=== PATIENT | male | born 1975 | race African-American/Black ===

== ENCOUNTER 2019-07-06 16:12 | Emergency (ER) | payer OTHER, SELFPAY ==
--- NOTE | 2019-07-06 16:23 | ED.GENADULT ---
HPI - General Adult General Chief complaint: Upper Respiratory Infection Stated complaint: COLD FLU Time Seen by Provider: 07/06/19 16:23 Source: patient Mode of arrival: ambulatory Limitations: no limitations History of Present Illness HPI narrative: 43-year-old male patient presents to the [facility] with complaints of cold symptoms for the past 7 days. Patient states that he did get a flu shot this year. Patient states he has had fevers, body aches, chills, cough, runny nose. Patient states that he has had some intermittent chest pain for the past 3 days to the left upper chest at times. Patient states he does have a history of asthma that he has been using his inhaler for and has been getting better. Patient states that his is recently tested positive for influenza. Related Data Allergies Allergy/AdvReac Type Severity Reaction Status Date / Time fluticasone Allergy Unknown Seizure Verified 07/06/19 16:32 oxcarbazepine Allergy Unknown UPSET Verified 01/16/19 16:23 STOMACHE primidone Allergy Unknown Seizure Verified 07/06/19 16:32 salmeterol Allergy Unknown Seizure Verified 07/06/19 16:32 FLUTICASONE PROPIONATE Allergy Unknown Seizure Uncoded 07/06/19 16:32 SALMETEROL XINAFOATE Allergy Unknown Seizure Uncoded 07/06/19 16:32 Review of Systems Review of Systems: Narrative: CONSTITUTIONAL: Positive subjective fever, body aches, chills, and sweats. EYES: Denies visual changes, redness, or discharge. ENT: Positive rhinorrhea, congestion, denies sore throat, or otalgia. CARDIOVASCULAR: Positive intermittent left upper chest pain, denies palpitations, or edema. RESPIRATORY: Positive cough with dyspnea at times. GASTROINTESTINAL: Denies abdominal pain, nausea, vomiting, or diarrhea. GENITOURINARY: Denies dysuria or hematuria. SKIN: Denies rash or itching. MUSCULOSKELETAL: Denies back pain, joint pain, or myalgia. NEUROLOGIC: Denies headache, numbness, or weakness. PSYCHIATRIC: Denies anxiety or depression. [facility] Social History Social History Smoking status: Never smoker Alcohol intake: never Comments At the time of my signature I agree with nursing past medical history, surgical, social, and family history. There is no relevant family history pertinent to the presenting complaint. Exam Narrative: Exam Narrative: GENERAL: Well-appearing, well-nourished, and in no acute distress. HEAD: Normocephalic, atraumatic. EYES: PERRLA and EOMI. ENT: Nares clear, no rhinorrhea or epistaxis. Mucous membranes moist. Bilateral TMs are clear no erythema or foreign bodies in the canal. Posterior pharynx no erythema, tonsillar margin, exudates or lesions present. NECK: Supple. No lymphadenopathy CHEST: Clear to auscultation. No respiratory distress. Patient able talk in clear complete sentences. No tripoding noted. HEART: Regular rate and rhythm. No murmur heard. Normal peripheral pulses. ABDOMEN: Soft, nontender, nondistended, normal active bowel sounds. EXTREMITIES: Normal range of motion. No edema. SKIN: Warm, dry, no rash. NEURO: No focal deficits. Alert and oriented x3. Course Vital Signs Vital signs: Vital Signs Temperature 36.6 C 07/06/19 16:32 Pulse Rate 107 H 07/06/19 16:32 Respiratory Rate 16 07/06/19 16:32 Blood Pressure 130/85 07/06/19 16:32 Pulse Oximetry 100 07/06/19 16:32 Temperature 36.6 C 07/06/19 16:32 Pulse Rate 107 H 07/06/19 16:32 Respiratory Rate 16 07/06/19 16:32 Blood Pressure 130/85 07/06/19 16:32 Pulse Oximetry 100 07/06/19 16:32 Vital signs reviewed. Medical Decision Making Differential Diagnosis Differential Diagnosis: Differential diagnosis: Allergic rhinitis, chronic sinusitis, tonsillitis, acute sinusitis, infectious mononucleosis, seasonal influenza, pertussis, diphtheria, meningococcal disease, viral syndrome, viral bronchitis, RSV. Cussed with patient this is most likely influenza that is causing hi
[2019-07-06 16:32] VITALS: BP 130/85; PULSE 107; RESP 16; TEMP 36.6; O2SAT 100
--- NOTE | 2019-07-06 16:47 | ECG_ITS ---
Measurements Intervals [place] Rate: 102 P: 58 VT: 147 QRS: -12 QRSD: 85 T: 44 QT: 321 QTc: 419 Interpretive Statements SINUS TACHYCARD[address] ST ELEVATION IN DIFFUSE LEADS- PROBABLY EARLY REPOLARIZATION BASELINE ARTIFACT- II, III, AVR, AVL, AVF, V1-V2 ABNORMAL ECG Electronically Signed On 07-07-2019 13:34:25 CDT by Thomas Chavez D.O.
== END 2019-07-06 17:07 | disposition home or self-care (01) ==
PROVIDERS: Emergency Provider Nurse Practitioner Family; PCP Family Medicine
DX: J06.9 Acute upper respiratory infection, unspecified (principal); R05 Cough; R00.0 Tachycardia, unspecified; R94.31 Abnormal electrocardiogram [ECG] [EKG]
CPT/HCPCS: 93005; 99213; G0463

== ENCOUNTER 2019-07-10 01:02 | Emergency (ER) | payer OTHER, SELFPAY ==
--- NOTE | ~2019-07-10 | XR_ITS ---
XR chest 2V DATE: 07/10/2019 02:07 INDICATION: Shortness of breath TECHNIQUE: PA and lateral views COMPARISON: 02/17/2015 portable AP chest FINDINGS: Normal heart size. No hilar or mediastinal enlargement. No pulmonary infiltrate or consolid ation, pleural effusion or pulmonary vascular congestion or pneumothorax. IMPRESSION: No active cardiopulmonary disease Reviewed, dictated and finalized at location A.
--- NOTE | 2019-07-10 01:15 | ED_ITS ---
I attest that this documentation has been prepared under the direction and in the presence of Ruby Quiros MD. Alexei Bell Scribe 07/10/19;01:20 HPI - URI/Sore Throat General Stated Complaint: WHEEZING Time Seen by Provider: 07/10/19 01:12 History of Present Illness HPI Narrative: A 43 y/o male presents to the ED with SOB and wheezing for the past 9 days. wheezing, SOB, chest tightness, fatigue 9 days occasional dry cough no fevers, rhinorrhea, sore throat, nasal congestion, chills, body aches, CURRY Speredra and albuterol inhaler 3+ times a day 5 days worth LAYLA - finished them DDD, migraine, asthma, Renolds, colonoscopy, sinus surgery, vasectomy diminished bs through[place]ut and occasional faint wheezes Related Data Allergies Allergy/AdvReac Type Severity Reaction Status Date / Time fluticasone Allergy Unknown Seizure Verified 07/06/19 16:32 oxcarbazepine Allergy Unknown UPSET Verified 01/16/19 16:23 STOMACHE primidone Allergy Unknown Seizure Verified 07/06/19 16:32 salmeterol Allergy Unknown Seizure Verified 07/06/19 16:32 FLUTICASONE PROPIONATE Allergy Unknown Seizure Uncoded 07/06/19 16:32 SALMETEROL XINAFOATE Allergy Unknown Seizure Uncoded 07/06/19 16:32 [facility] Social History Social History Smoking status: Never smoker Alcohol intake: never Discharge Plan Discharge Prescriptions: No Action prednisone 20 mg tablet 40 mg PO DAILY 5 Days Qty: 10 RF: 0
--- NOTE | 2019-07-10 01:20 | ED.SOB ---
HPI - SOB/Dyspnea General Chief Complaint: Shortness of Breath/Dyspnea Stated Complaint: WHEEZING Time Seen by Provider: 07/10/19 01:12 Source: patient and RN notes reviewed Mode of arrival: ambulatory Limitations: no limitations History of Present Illness HPI Narrative: A 43 y/o male, with a hx of asthma, presents to the ED with worsening SOB and wheezing for the past 9 days. He reports associated chest tightness, fatigue, sore throat, nasal congestion, chills, body aches, CURRY, and a occasional dry cough. He states that he was seen at the on 07/06/19 for these symptoms and was placed on Prednisone LAYLA for 5 days and told to continue using his albuterol inhaler. He notes that he has followed these instructions but denies them alleviating his symptoms. He also denies any fevers or rhinorrhea. MD elicited complaint: shortness of breath Pertinent past history: asthma Onset (ago): day(s) (9) Timing: progressively worsening Relieving factors: nothing Known history of: asthma Associated symptoms: chest pain (tightness), cough (occasional dry) and other (fatigue, sore throat, nasal congestion, chills, body aches, and CURRY) Treatment prior to arrival: other (Prednisone and albuterol inhaler) Related Data Allergies Allergy/AdvReac Type Severity Reaction Status Date / Time fluticasone Allergy Unknown Seizure Verified 07/06/19 16:32 oxcarbazepine Allergy Unknown UPSET Verified 01/16/19 16:23 STOMACHE primidone Allergy Unknown Seizure Verified 07/06/19 16:32 salmeterol Allergy Unknown Seizure Verified 07/06/19 16:32 FLUTICASONE PROPIONATE Allergy Unknown Seizure Uncoded 07/06/19 16:32 SALMETEROL XINAFOATE Allergy Unknown Seizure Uncoded 07/06/19 16:32 Review of Systems Review of Systems: All systems reviewed & are unremarkable except as noted in HPI and below Constitutional: Constitutional: Reports body ache(s), Reports chills, Reports fatigue and Denies fever(s) ENT: Reports nasal congestion, Denies nasal discharge and Reports sore throat Cardiovascular: Cardiovascular: Reports chest pain (tightness) Respiratory: Respiratory: Reports cough (occasional dry), Reports dyspnea and Reports wheezing Neurologic: Reports headache(s) PMFSH Past Medical History Medical History Asthma DDD (degenerative disc disease) Hx of migraines Surgical History Surgical History History of colonoscopy History of sinus surgery History of vasectomy Social History Social History Smoking status: Never smoker Alcohol intake: never Exam Const: General: cooperative, no acute distress and alert Nutritional Appearance: well nourished Orientation/consciousness: patient oriented x3 Limitations: no limitations HENMT: Mouth: Yes lip normal and Yes moist mucous membranes Resp: Effort & Inspection: normal respiratory effort Auscultation: wheezes (occasional faint) and diminished lung sounds (throughout) Cardio: Rate: regular rate Rhythm: regular rhythm GI: GI Palp: Yes Soft to palpation and No Tenderness to palpation present (GI) Auscultation: normal bowel sounds Skin: General skin exam: normal color Neuro: General: patient oriented x3 Cognition (Neuro): normal cognition Speech: normal speech Extrem: General: normal to inspection, full ROM and no clubbing, cyanosis or edema Psych: Mental Status: mental status grossly normal Affect: normal affect Attitude: cooperative Course Course Emergency Course: Patient feeling better after nebulizer treatment. No acute findings noted on chest x-ray. Patient well in appearance with minimal wheezing and no notable cough. Clinical picture consistent with resolving viral syndrome and asthma exacerbation. Advised primary care follow-up Vital Signs Vital signs: Vital Signs Temperature 98.0 F 07/10/19 01:30 Pulse Rate 80 07/10/19 01:30 Respiratory Rate 18 03
[2019-07-10 01:30] VITALS: BP 133/92; PULSE 80; RESP 18; TEMP 36.7; O2SAT 97
[2019-07-10 01:42] VITALS: PULSE 79; RESP 11
[2019-07-10] MEDS: IPRATROPIUM BR 0.02% INH SOLN 0.5 MG/2.5 ML VIAL INHALATION (01:45)
[2019-07-10] MEDS: ALBUTEROL SULFATE NEB 2.5 MG/0.5 ML INH 5 MG INHALATION (01:45)
[2019-07-10 01:49] VITALS: PULSE 80; RESP 16
[2019-07-10 03:25] VITALS: BP 126/70; PULSE 84; RESP 14; O2SAT 99
== END 2019-07-10 03:25 | disposition home or self-care (01) ==
PROVIDERS: Emergency Provider Emergency Medicine; PCP Family Medicine
DX: J45.901 Unspecified asthma with (acute) exacerbation (principal); J06.9 Acute upper respiratory infection, unspecified
CPT/HCPCS: 71046; 87804; 94640; 99283

== ENCOUNTER 2019-07-14 01:50 | Emergency (ER) | payer OTHER, SELFPAY ==
[2019-07-14 01:54] VITALS: BP 138/79; PULSE 100; RESP 16; TEMP 35.9; O2SAT 98
[2019-07-14 02:25] VITALS: O2SAT 97
--- NOTE | 2019-07-14 02:34 | ED.ASTHMA ---
HPI - Asthma General Chief Complaint: Asthma Stated Complaint: asthma Time Seen by Provider: 07/14/19 02:34 Source: patient Mode of arrival: ambulatory Limitations: no limitations History of Present Illness HPI Narrative: A 43 y/o male, with a PMHx of asthma, presents to the ED with c/o an asthma attack. Pt states that it feels like his chest and throat are closing up. Pt has Albuterol and Spiriva that he has used with no relief. Pt was seen in the ED a couple days ago for the same issues and was given a breathing treatment. He reports chest tightness, a sore throat, cough, chills, and body aches, but denies sweats, ABD pain, N/V/D, smoking, alcohol use, and drug use. Asthma History: history of prior ED visit Treatments Prior to Arrival: other (Albuterol, Spiriva) Related Data Home Medications Medication Instructions Recorded Confirmed albuterol sulfate INHALATION 07/14/19 Allergies Allergy/AdvReac Type Severity Reaction Status Date / Time fluticasone Allergy Unknown Seizure Verified 07/14/19 02:07 oxcarbazepine Allergy Unknown UPSET Verified 07/14/19 02:07 STOMACHE primidone Allergy Unknown Seizure Verified 07/14/19 02:07 salmeterol Allergy Unknown Seizure Verified 07/14/19 02:07 FLUTICASONE PROPIONATE Allergy Unknown Seizure Uncoded 07/14/19 02:07 SALMETEROL XINAFOATE Allergy Unknown Seizure Uncoded 07/14/19 02:07 Review of Systems Review of Systems: All systems reviewed & are unremarkable except as noted in HPI and below Constitutional: Constitutional: Reports chills Comments: Reports: body aches; Denies: sweats ENT: Reports sore throat Cardiovascular: Comments: Reports: chest tightness Respiratory: Respiratory: Reports cough Comments: Reports: asthma attack Gastrointestinal: Gastrointestinal: Denies abdominal pain, Denies diarrhea, Denies nausea and Denies vomiting [facility] Past Medical History Medical History Asthma DDD (degenerative disc disease) Hx of migraines Spinal stenosis Surgical History Surgical History History of colonoscopy History of sinus surgery History of vasectomy Social History Social History (Updated 07/14/19 @ 02:45 by Oralia Hensley Smoking status: Never smoker Alcohol intake: never Substance use: never Comments PCP: Dr. Sarmiento Exam Narrative: Exam Narrative: GENERAL: Well-appearing, well-nourished, and in no acute distress. HEAD: Normocephalic, atraumatic. ENT: Mucous membranes moist. CHEST: Clear to auscultation. No respiratory distress. HEART: Regular rate and rhythm. Normal peripheral pulses. EXTREMITIES: Normal range of motion. No edema. NEURO: Alert and oriented x3. PSYCH: Normal mood and affect. Course Course Emergency Course: Feels better with neb. D/c. Vital Signs Vital signs: Vital Signs Temperature 96.6 F L 07/14/19 01:54 Pulse Rate 100 07/14/19 01:54 Respiratory Rate 16 07/14/19 01:54 Blood Pressure 138/79 07/14/19 01:54 Pulse Oximetry 98 07/14/19 01:54 Temperature 96.6 F L 07/14/19 01:54 Pulse Rate 92 07/14/19 03:08 Respiratory Rate 18 07/14/19 03:08 Blood Pressure 138/79 07/14/19 01:54 Pulse Oximetry 97 07/14/19 02:25 Discharge Plan Discharge Clinical Impression: Asthma with acute exacerbation Qualifiers: Asthma severity: mild Asthma persistence: unspecified Qualified Code(s): J45.901 - Unspecified asthma with (acute) exacerbation Patient Disposition: Home, Self-Care Condition: Stable Instructions: Asthma (ED) Additional Instructions: Return to the ER if you have fever over 101F, you cannot keep down food/water, or you have other concerns. Prescriptions: New prednisone 20 mg tablet 40 mg PO DAILY Qty: 10 RF: 0 No Action prednisone 20 mg tablet 40 mg PO DAILY 5 Days Qty: 10 RF: 0 albuterol sulfate 90 mcg/actuation HFA aerosol inhaler INHALATION RF: 0
[2019-07-14] MEDS: ALBUTEROL SULFATE NEB 2.5 MG/0.5 ML INH 5 MG INHALATION (02:53)
[2019-07-14] MEDS: IPRATROPIUM BR 0.02% INH SOLN 0.5 MG/2.5 ML VIAL INHALATION (02:53)
[2019-07-14 02:58] VITALS: PULSE 90; RESP 18
[2019-07-14 03:08] VITALS: PULSE 92; RESP 18
[2019-07-14] MEDS: predniSONE 20 MG TABLET 60 MG PO (03:08)
[2019-07-14 03:30] VITALS: BP 120/91; PULSE 84; RESP 12; TEMP 36.7; O2SAT 97
== END 2019-07-14 03:30 | disposition home or self-care (01) ==
PROVIDERS: Emergency Provider Emergency Medicine; PCP Family Medicine
DX: J45.901 Unspecified asthma with (acute) exacerbation (principal)
CPT/HCPCS: 99283; J7512

== ENCOUNTER 2019-12-13 18:09 | Emergency (ER) | payer OTHER, SELFPAY ==
--- NOTE | ~2019-12-13 | XR_ITS ---
EXAMINATION: XR chest 1V portable DATE: 12/13/2019 19:19 INDICATION: Shortness of breath and chest tightness TECHNIQUE: frontal view of the chest was obtained. COMPARISON: Chest radiograph dated 07/10/2019 FINDINGS: The lungs remain clear with no focal airspace opacities, pulmonary edema, pleural effusion or pneumot horax. The cardiomediastinal silhouette is normal. Visualized bones and soft tissues are unremarkable . IMPRESSION: 1. No acute cardiopulmonary disease. Reviewed, dictated and finalized at location A.
[2019-12-13 18:14] VITALS: BP 132/82; PULSE 114; RESP 20; TEMP 36.6; O2SAT 99
--- NOTE | 2019-12-13 19:07 | ECG_ITS ---
Measurements Intervals [place] Rate: 95 P: 59 DC: 147 QRS: -12 QRSD: 104 T: 38 QT: 333 QTc: 420 Interpretive Statements SINUS RHYTHM MINIMAL Q WAVES- HIGH LATERAL LEADS ST ELEVATION IN DIFFUSE LEADS- PROBABLY EARLY REPOLARIZATION BORDERLINE ECG Electronically Signed On 12-14-2019 7:00:14 CDT by Thomas Chavez D.O.
--- NOTE | 2019-12-13 19:08 | ED.SOB ---
HPI - SOB/Dyspnea General Chief Complaint: Shortness of Breath/Dyspnea Stated Complaint: asthma Time Seen by Provider: 12/13/19 19:01 Source: patient Mode of arrival: ambulatory Limitations: no limitations History of Present Illness HPI Narrative: This patient is a 44 year old male with history of asthma who presents for evaluation of asthma. He states he feels like he needs to take shallow breaths. He reports he feels like his breathing is constricted. He reports wheezing. He described intermittent chest tightness. He denies fever or chills. He denies sore throat, runny nose of nasal congestion. Pertinent past history: asthma Related Data Home Medications Medication Instructions Recorded Confirmed albuterol sulfate INHALATION 07/14/19 aspirin 81 mg PO DAILY 12/13/19 carbamazepine [Tegretol XR] 200 mg PO BID 12/13/19 cyclobenzaprine 5 mg PO TID 12/13/19 ipratropium-albuterol 3 ml INHALATION 12/13/19 meloxicam 15 mg PO DAILY 12/13/19 nortriptyline 20 mg PO HS 12/13/19 tiotropium bromide [Spiriva with 1 cap INHALATION DAILY 12/13/19 HandiHaler] Allergies Allergy/AdvReac Type Severity Reaction Status Date / Time oxcarbazepine Allergy Unknown UPSET Verified 12/13/19 19:08 STOMACHE primidone Allergy Unknown Seizure Verified 12/13/19 19:08 salmeterol Allergy Unknown Seizure Verified 12/13/19 19:08 FLUTICASONE PROPIONATE Allergy Unknown Seizure Uncoded 12/13/19 19:08 SALMETEROL XINAFOATE Allergy Unknown Seizure Uncoded 12/13/19 19:08 Review of Systems Review of Systems: All systems reviewed & are unremarkable except as noted in HPI and below Constitutional: Constitutional: Denies chills and Denies fever(s) ENT: Reports nasal congestion and Reports sore throat Cardiovascular: Cardiovascular: Reports chest pain and Denies radiating jaw, neck or arm pain Respiratory: Respiratory: Denies chest congestion, Denies cough, Reports dyspnea and Reports wheezing Gastrointestinal: Gastrointestinal: Denies abdominal pain, Denies diarrhea, Denies nausea and Denies vomiting PMFSH Past Medical History Medical History Asthma DDD (degenerative disc disease) Hx of migraines Spinal stenosis Surgical History Surgical History History of colonoscopy History of sinus surgery History of vasectomy Social History Social History (Updated 07/14/19 @ 02:45 by Oralia Oliveira) Smoking status: Never smoker Alcohol intake: never Substance use: never Gender identity (if verbalized by the patient): Male Exam Const: General: no acute distress and alert Orientation/consciousness: patient oriented x3 HENMT: Ears: TM's normal bilaterally Eyes: EOM: EOMs intact bilaterally Neck: Neck: normal visual inspection and no lymphadenopathy Chest: Chest palpation & inspection: normal inspection of the chest Resp: Effort & Inspection: normal respiratory effort, not labored, no retractions and not tachypneic Auscultation: clear to auscultation bilaterally and no wheezes Other: able to speak in complete sentences Cardio: Rate: regular rate Rhythm: regular rhythm Heart sounds: no murmurs GI: GI Palp: Yes Soft to palpation, No Tenderness to palpation present (GI), No Guarding due to palpation present (GI) and No Rigid due to palpation Skin: General skin exam: normal color Rashes: no rashes Neuro: General: patient oriented x3 and moves all extremities Extrem: General: no pedal edema Course Reevaluation(s) Reevaluation #1: Patent is resting in bed in no acute distress. I Discussed evaluation has been unremarkable. He states this problem is due to his asthma so will given MDI training and place on prednisone. Date: 12/13/19 Time: 21:25 Vital Signs Vital signs: Vital Signs Temperature 97.8 F 12/13/19 18:14 Pulse Rate 114 H 12/13/19 18:14 Respiratory Rate 20 12/13/19 18:14
[2019-12-13 19:24] LABS: Alveolar/Arterial O2 Gradient 12.5 mmHg; Base Excess ABG 0.8 mEq/l (+/-2.0); Device ROOM AIR; Fractional Inspired Oxygen 21 %; HCO3 ABG 25.2 mEq/l (22.0-26.0); Oxygen Content ABG 21.6 %vol (16.0-22.0); PCO2 ABG 39.5 mmHg (35.0-45.0); PO2 ABG 89.9 mmHg (80.0-100.0); PO2 FiO2 Ratio Arterial Blood 4.28 %; Site Drawn LEFT BRACHIAL; pH ABG 7.422 (7.350-7.450)
[2019-12-13 19:39] LABS: Basophils Percent Auto 0.6 % (0.2-1.2); Eosinophils Absolute Auto 0.2 K/mm3 (0-0.3); Eosinophils Percent Auto 2.3 % (0-4.4); Hematocrit 44.5 % (42.0-52.0); Immature Granulocyte Absolute 0.01 K/mm3 (0.00-0.031); Immature Granulocyte Percent A 0.2 % (0-0.5); Lymphocytes Absolute Auto 2.18 K/mm3 (0.9-3.2); Lymphocytes Percent Auto 33.1 % (18.3-44.2); Mean Corpuscular HGB Conc 33.7 g/dl (32-36); Mean Corpuscular Hemoglobin 30.7 pg (26-34); Mean Corpuscular Volume 91.2 fl (80-100); Mean Platelet Volume 9.6 fl (7.4-10.4); Monocytes Absolute Auto 0.8 K/mm3 (0.1-0.6); Neutrophils Absolute Auto 3.4 K/mm3 (1.3-6.7); Neutrophils Percent Auto 51.8 % (45.5-73.1); Platelet Count Result 192 k/mm3 (150-375); Red Blood Count 4.88 M/mm3 (4.6-6.20); White Blood Count 6.6 K/mm3 (4.5-10.0)
[2019-12-13 19:52] LABS: Lactic Acid Reflex 1.3 mmol/L (0.7-2.1)
[2019-12-13 19:53] LABS: Alanine Aminotransferase 44 U/L (4-50); Albumin Level 4.6 g/dL (3.5-5.1); Alkaline Phosphatase 94 U/L (38-126); Anion Gap 9 mmol/L (8-16); Aspartate Amino Transferase 32 U/L (17-59); Bilirubin,Total 0.3 mg/dL (0.2-1.3); Blood Urea Nitrogen 15 mg/dL (9-20); Calcium 9.1 mg/dL (8.4-10.2); Carbon Dioxide 26 mmol/L (22-30); Chloride 102 mmol/L (98-107); Estimated CRCL calculation 93 ml/min; Estimated Glomerular Filt Rate > 60; Glucose 104 mg/dL (75-110); Potassium 3.9 mmol/L (3.4-5.0); Sodium 137 mmol/L (137-145)
[2019-12-13 20:01] LABS: Prothrombin Time 12.8 Seconds (11.1-14.7)
[2019-12-13 20:02] LABS: Partial Thromboplastin Time 30.8 SECONDS (22.3-36.8)
[2019-12-13 20:04] LABS: NT Pro B Type Natriuretic Pept 18 PG/ML (5-100); Troponin I < 0.012 ng/mL (0.000-0.034)
[2019-12-13 20:08] LABS: D Dimer 0.27 ug/mL (<0.48)
[2019-12-13 20:24] VITALS: BP 128/89; PULSE 97; RESP 16; TEMP 36.8; O2SAT 98
[2019-12-13 20:27] VITALS: O2SAT 99
--- NOTE | 2019-12-13 20:57 | PC.NURSE ---
[facility] [place] BY ELI WHALEY; ON CONTINUOUS PULSE OXIMETRY, SPO2 REMAINED MID-HIGH 90's.
[2019-12-13] MEDS: predniSONE 20 MG TABLET 60 MG PO (21:33)
[2019-12-13 21:45] VITALS: BP 129/89; PULSE 98; RESP 14; O2SAT 97
[2019-12-13] MEDS: ALBUTEROL SULFATE (*SP) AEROSOL 1 PUFF 4 PUFF INHALATION (21:46)
[2019-12-13 21:48] VITALS: PULSE 90; RESP 16
[2019-12-13 21:50] VITALS: O2SAT 98
== END 2019-12-13 21:50 | disposition home or self-care (01) ==
PROVIDERS: Emergency Provider General Practice; PCP Family Medicine
DX: J45.909 Unspecified asthma, uncomplicated (principal)
CPT/HCPCS: 36415; 36600; 71045; 80053; 82805; 83605; 83880; 84484; 85025; 85380; 85610; 85730; 93005; 99284; A9270; J7512

== ENCOUNTER 2020-01-06 19:25 | Emergency (ER) | payer OTHER, SELFPAY ==
[2020-01-06 19:36] VITALS: BP 143/83; PULSE 103; RESP 16; TEMP 36.8; O2SAT 99
--- NOTE | 2020-01-06 20:12 | ED.HA ---
HPI - Headache General Chief Complaint: Headache Stated Complaint: Migranes Time Seen by Provider: 01/06/20 20:12 Source: patient and RN notes reviewed History of Present Illness HPI Narrative: 44-year-old male who presents [facility] with complaints of migraine headache for the past 2 days. Patient states that he has bilateral temporal headache pain and pain across the crown region of head.Patient states that he is on nortriptyline as maintenance for his headaches and he has been taking as prescribed. Patient states that he has long history of migraine headaches and seizures with last one noted in 2014, takes Tegretol daily. Patient states that he has no nausea at this time; has some sensitivity to sound and lights, has taken Ibuprofen with no relief. MD elicited complaint: migraine Pertinent past history: migraines Onset (ago): day(s) (2) Onset description: gradually Location: temporal and other (crown of head) Severity: moderate Pain scale (0-10): 4 Quality & Timing: aching and throbbing Exacerbating factors: light and noise Relieving factors: nothing Associated symptoms: photophobia and sensitivity to sound Treatments prior to arrival: ibuprofen Related Data Home Medications Medication Instructions Recorded Confirmed albuterol sulfate 2 inh INHALATION DIRECTED 07/14/19 01/06/20 aspirin 81 mg PO DAILY 12/13/19 01/06/20 carbamazepine [Tegretol XR] 200 mg PO BID 12/13/19 01/06/20 cyclobenzaprine 5 mg PO TID 12/13/19 01/06/20 meloxicam 15 mg PO DAILY 12/13/19 01/06/20 nortriptyline 20 mg PO HS 12/13/19 01/06/20 tiotropium bromide [Spiriva with 1 cap INHALATION DAILY 12/13/19 01/06/20 HandiHaler] Allergies Allergy/AdvReac Type Severity Reaction Status Date / Time oxcarbazepine Allergy Unknown UPSET Verified 12/13/19 19:08 STOMACHE primidone Allergy Unknown Seizure Verified 12/13/19 19:08 salmeterol Allergy Unknown Seizure Verified 12/13/19 19:08 FLUTICASONE PROPIONATE Allergy Unknown Seizure Uncoded 12/13/19 19:08 SALMETEROL XINAFOATE Allergy Unknown Seizure Uncoded 12/13/19 19:08 Review of Systems Review of Systems: Narrative: CONSTITUTIONAL: Denies fever, chills, or sweats. EYES: Denies visual changes, redness, or discharge.some photophobia and sensitivity to sound ENT: Denies rhinorrhea, congestion, sore throat, or otalgia. CARDIOVASCULAR: Denies chest pain, palpitations, or edema. RESPIRATORY: Denies cough or dyspnea. GASTROINTESTINAL: Denies abdominal pain, nausea, vomiting, or diarrhea. GENITOURINARY: Denies dysuria or hematuria. SKIN: Denies rash or itching. MUSCULOSKELETAL: Denies back pain, joint pain, or myalgia. NEUROLOGIC:positive temporal headache and in crown of head, no numbness, or weakness. PSYCHIATRIC: Denies anxiety or depression. All systems reviewed & are unremarkable except as noted in HPI and below PMFSH Past Medical History Medical History Asthma DDD (degenerative disc disease) Hx of migraines Spinal stenosis Surgical History Surgical History History of colonoscopy History of sinus surgery History of vasectomy Social History Social History Smoking status: Never smoker Alcohol intake: never Substance use: never Gender identity (if verbalized by the patient): Male Comments At time of signature, agree with nursing past medical, surgical, social history. There is no relevant family history pertinent to the presenting complaint Exam Narrative: Exam Narrative: GENERAL: Well-appearing, well-nourished, and in no acute distress. HEAD: Normocephalic, atraumatic. EYES: PERRLA and EOMI. ENT: Nares clear, no rhinorrhea or epistaxis. Mucous membranes moist. NECK: Supple. No lymphadenopathy CHEST: Clear to auscultation. No respiratory distress.SAO2 99% on room air HEART: Regular rate and rhythm. No murmur he
[2020-01-06] MEDS: KETOROLAC (*BKC) 60 MG/2 ML VIAL IM (20:17)
== END 2020-01-06 20:41 | disposition home or self-care (01) ==
PROVIDERS: Emergency Provider Registered Nurse; PCP Family Medicine
DX: G43.909 Migraine, unspecified, not intractable, without status migrainosus (principal); J45.909 Unspecified asthma, uncomplicated; M48.00 Spinal stenosis, site unspecified; Z79.82 Long term (current) use of aspirin
CPT/HCPCS: 96372; 99213; G0463; J1885

== ENCOUNTER 2020-02-17 17:35 | Emergency (ER) | payer OTHER, SELFPAY ==
[2020-02-17 17:43] VITALS: BP 128/73; PULSE 85; RESP 16; TEMP 36.7; O2SAT 100
--- NOTE | 2020-02-17 17:55 | ED.GENADULT ---
HPI - General Adult General Chief complaint: Headache Stated complaint: Migraine Time Seen by Provider: 02/17/20 17:56 Source: patient and RN notes reviewed Mode of arrival: ambulatory Limitations: no limitations History of Present Illness HPI narrative: 44-year-old -[place] male presents with complaints of headache without aura for the past 3 days. Nortriptyline and Aleve without relief. Melecio says this CURRY is not the WORST one of his life. No neck stiffness. No fever or chills. No URI symptoms. No head injury. History of migraines. Denies dizziness, vision change, confusion, or seizure activity. The patient reports they have not been diagnosed with COVID-19. The patient reports they are not waiting for the results of a COVID-19 lab test. The patient reports they do not have fever, chills, weakness, fatigue, myalgia, or facial swelling. The patient reports he have not been diagnosed with COVID-19. The patient reports he is not waiting for the results of a COVID-19 lab test. The patient reports he do not have fever, weakness, or fatigue. The patient reports he do not have a new or worsening cough or shortness of breath. Denies chest pain. The patient reports he do not have any rhinorrhea, congestion, loss of taste, sore throat, nausea, vomiting, abdominal pain, and diarrhea. Tolerating po intake well. Denies recent traveling. Denies concerns for COVID-19 or exposures been home with limited outdoor exposure except for essential household needs and return home. At this time, patient is not suspected of having COVID-19. Some parts of this dictation were generated by voice recognition software and may contain typographical and/or grammatical inaccuracies. Related Data Home Medications Medication Instructions Recorded Confirmed albuterol sulfate 2 inh INHALATION DIRECTED 07/14/19 01/06/20 aspirin 81 mg PO DAILY 12/13/19 01/06/20 carbamazepine [Tegretol XR] 200 mg PO BID 12/13/19 01/06/20 cyclobenzaprine 5 mg PO TID 12/13/19 01/06/20 meloxicam 15 mg PO DAILY 12/13/19 01/06/20 nortriptyline 20 mg PO HS 12/13/19 01/06/20 tiotropium bromide [Spiriva with 1 cap INHALATION DAILY 12/13/19 01/06/20 HandiHaler] ondansetron HCl 02/17/20 Allergies Allergy/AdvReac Type Severity Reaction Status Date / Time oxcarbazepine Allergy Unknown UPSET Verified 12/13/19 19:08 STOMACHE primidone Allergy Unknown Seizure Verified 12/13/19 19:08 salmeterol Allergy Unknown Seizure Verified 12/13/19 19:08 FLUTICASONE PROPIONATE Allergy Unknown Seizure Uncoded 12/13/19 19:08 SALMETEROL XINAFOATE Allergy Unknown Seizure Uncoded 12/13/19 19:08 Review of Systems Review of Systems: Narrative: CONSTITUTIONAL: Denies fever, chills, sweats. EYES: Denies visual changes, redness, discharge. ENT: Denies rhinorrhea, congestion, sore throat, otalgia. CARDIOVASCULAR: Denies chest pain, palpitations, edema. RESPIRATORY: Denies dyspnea, wheezing, cough. GASTROINTESTINAL: Denies abdominal pain, nausea, vomiting, or diarrhea. SKIN: Denies rash or itching. MUSCULOSKELETAL: Denies acute back pain, joint pain, or myalgia. NEUROLOGIC: Denies numbness or focal weakness. Complaints of headaches. PSYCHIATRIC: Denies anxiety or depression. All systems reviewed & are unremarkable except as noted in HPI and below. FOR[facility]LY [facility] Past Medical History Medical History (Updated 02/18/20 @ 00:00 by Background Daemon) Asthma DDD (degenerative disc disease) Hx of migraines Seizures Spinal stenosis Surgical History Surgical History (Updated 02/17/20 @ 18:07 by DEAN Mora) History of colonoscopy History of foot surgery Left History of sinus surgery History of vasectomy Family History Family History (Updated 02/17/20 @ 18:08 by DEAN Mora) Father Acute myocardial infarction Cerebrovascular accident Mother Acute myocardial infarction Cerebrovascular accident Social History Social History (Upd
[2020-02-17] MEDS: KETOROLAC (*BKC) 60 MG/2 ML VIAL IM (18:08)
== END 2020-02-17 18:28 | disposition home or self-care (01) ==
PROVIDERS: Emergency Provider Nurse Practitioner Family; PCP Family Medicine
DX: G43.909 Migraine, unspecified, not intractable, without status migrainosus (principal); J45.909 Unspecified asthma, uncomplicated; M48.00 Spinal stenosis, site unspecified; Z98.52 Vasectomy status; Z79.82 Long term (current) use of aspirin
CPT/HCPCS: 96372; 99213; G0463; J1885

== ENCOUNTER 2020-03-06 17:04 | Outpatient (CLI) | payer OTHER, SELFPAY ==
--- NOTE | ~2020-03-06 | XR_ITS ---
XR chest 2V DATE: 03/06/2020 17:27 INDICATION: History of asbestos exposure. Asthma. TECHNIQUE: PA and lateral views COMPARISON: 12/13/2019 portable AP chest FINDINGS: Normal heart size. No hilar or mediastinal enlargement. No pulmonary infiltrate or consolid ation, pleural effusion or pulmonary vascular congestion or pneumothorax. IMPRESSION: No active cardiopulmonary disease Reviewed, dictated and finalized at location A. LEVEL PRACTITIONER
== END 2020-03-06 17:05 | disposition home or self-care (01) ==
PROVIDERS: PCP Family Medicine; Visit Provider Family Medicine
DX: J45.909 Unspecified asthma, uncomplicated (principal); Z77.090 Contact with and (suspected) exposure to asbestos
CPT/HCPCS: 71046

== ENCOUNTER 2020-05-05 20:14 | Emergency (ER) | payer MEDICARE, MEDICAID, SELFPAY ==
--- NOTE | ~2020-05-05 | XR_ITS ---
EXAMINATION: XR chest 1V portable DATE: 05/05/2020 20:44 INDICATION: Chest pain. TECHNIQUE: A single frontal view of the chest was obtained. COMPARISON: Chest 2 views 03/06/2020 FINDINGS: The chest demonstrates clear lungs without pneumonia, pleural effusion, or pneumothorax. Th e heart size is normal. IMPRESSION: 1. No acute cardiopulmonary disease. Reviewed, dictated and finalized at location A. LLMENT SERVICES VICE PRESIDENT
[2020-05-05 20:20] VITALS: BP 161/96; PULSE 108; RESP 22; TEMP 36.8; O2SAT 97
--- NOTE | 2020-05-05 20:38 | ED.ASTHMA ---
HPI - Asthma General Chief Complaint: Asthma Stated Complaint: asthma, difficulty breathing Time Seen by Provider: 05/05/20 20:38 Source: patient and old records reviewed Mode of arrival: ambulatory Limitations: no limitations History of Present Illness HPI Narrative: Patient is a 44-year-old male who presents with what he feels is possible tightness of the throat noting that he has the sensation down the bilateral ears patient has had 2 - Covid test this week history of asthma was seen this week by primary care started on steroids which she has been taking patient denies fever chills nausea vomiting cough patient has been using his nebulizer at home has plenty of medications and on arrival does not appear uncomfortable or distressed denying any pain Related Data Home Medications Medication Instructions Recorded Confirmed albuterol sulfate 2 inh INHALATION DIRECTED 07/14/19 01/06/20 aspirin 81 mg PO DAILY 12/13/19 01/06/20 carbamazepine [Tegretol XR] 200 mg PO BID 12/13/19 01/06/20 cyclobenzaprine 5 mg PO TID 12/13/19 01/06/20 meloxicam 15 mg PO DAILY 12/13/19 01/06/20 nortriptyline 20 mg PO HS 12/13/19 01/06/20 tiotropium bromide [Spiriva with 1 cap INHALATION DAILY 12/13/19 01/06/20 HandiHaler] ondansetron HCl 02/17/20 Allergies Allergy/AdvReac Type Severity Reaction Status Date / Time oxcarbazepine Allergy Unknown UPSET Verified 05/05/20 20:23 STOMACHE primidone Allergy Unknown Seizure Verified 05/05/20 20:23 salmeterol Allergy Unknown Seizure Verified 05/05/20 20:23 FLUTICASONE PROPIONATE Allergy Unknown Seizure Uncoded 12/13/19 19:08 SALMETEROL XINAFOATE Allergy Unknown Seizure Uncoded 12/13/19 19:08 Review of Systems Review of Systems: All systems reviewed & are unremarkable except as noted in HPI and below PMFSH Past Medical History Medical History Asthma DDD (degenerative disc disease) Hx of migraines Seizures Spinal stenosis Surgical History Surgical History History of colonoscopy History of foot surgery Left History of sinus surgery History of vasectomy Family History Family History Father Acute myocardial infarction Cerebrovascular accident Mother Acute myocardial infarction Cerebrovascular accident Social History Social History Smoking status: Never smoker Tobacco type: cigarettes Second hand tobacco smoke exposure: Yes Alcohol intake: never Substance use: never Additional occupation/education comments: Disable Gender identity (if verbalized by the patient): Male Exam Narrative: Exam Narrative: GENERAL: Well-appearing, well-nourished, and in no acute distress. HEAD: Normocephalic, atraumatic. EYES: PERRLA and EOMI. ENT: Nares clear, no rhinorrhea or epistaxis. Mucous membranes moist. Oropharynx without tonsillar hypertrophy exudate or other lesions. Bilateral TMs with poor landmarks nonerythematous nonbulging NECK: Supple. No adenopathy or masses. CHEST: Clear to auscultation. No respiratory distress. No wheezes rales or rhonchi HEART: Regular rate and rhythm. No murmur heard. EXTREMITIES: Normal range of motion. No edema. SKIN: Warm, dry, no rash. NEURO: No focal deficits. Alert and oriented x3. Cranial nerves II through XII grossly intact PSYCH: Normal mood and affect. Course Course Emergency Course: Patient in the room with clear lung signs no distress has medications at home for his symptoms has had 2 - Covid test negative chest x-ray for pneumonia no hypoxemia will be discharged home for further evaluation treated symptomatically Vital Signs Vital signs: Vital Signs Temperature 98.3 F 05/05/20 20:20 Pulse Rate 108 H 05/05/20 20:20 Respiratory Rate 22 H 05/05/20 20:20 Blood Pressure
[2020-05-05 22:39] VITALS: BP 137/100; PULSE 94; RESP 18; O2SAT 96
== END 2020-05-05 22:40 | disposition home or self-care (01) ==
LOC: ANHED 21:36
PROVIDERS: Emergency Provider Emergency Medicine; PCP Family Medicine
DX: J45.901 Unspecified asthma with (acute) exacerbation (principal); Z79.82 Long term (current) use of aspirin; Z77.22 Contact with and (suspected) exposure to environmental tobacco smoke (acute) (chronic)
CPT/HCPCS: 71045; 99283

== ENCOUNTER 2020-07-04 07:57 | Outpatient (CLI) | payer MEDICARE, MEDICAID, SELFPAY ==
--- NOTE | 2020-07-04 12:34 | P.PCNPFT_ITS ---
PFT Interpretation This is a pulmonary function test with pre and post-bronchodilator spirometry, plethysmography and diffusing capacity. The test was performed and results interpreted in accordance with the 2019 and 2005 ATS/ERS Task Force guidelines respectively using the Global Lung Function Initiative-2012 reference equations. Patient demonstrated good effort and c ooperation. Reproducibility criteria were not met despite multiple attempts. The quality of the pre bronchodilator spirometry maneuver was Grade E and post bronchodilator spirometry maneuver was Grade E. Findings: Spirometry: The patient was unable to reproduce the flow volume loops. The pre bronchodilator FVC was 3.86 L, 89% predicted. The pre bronchodilator FEV1 was 2.84 L, 82% predicted. The FEV1: FVC ratio was 74%. Post bronchodilator FVC is 3.75 L, representing a 3% decrease. The post bronchodilator FEV1 was 3.23 L, representing a 14% increase. Plethysmography: The total lung capacity is 8.12 L, 132% predicted. The functional residual capacity is 4.11 L, 125% predicted. The residual volume is 4.08 L, 224% predicted. Diffusion capacity: The absolute diffusion capacity 20.3, 64% predicted. Diffusion capacity corrected for alveolar volume is 4.03, 86% predicted. Impression: The spirometry was not reproducible making interpretation challenging. Using the best data the spirometry is normal without evidence of an obstruction and there is a significant improvement after inhaling a single dose of albuterol. The total lung capacity, functional residual capacity and residual volume are all increased. This is an abnormal but nonspecific lung volume pattern. The absolute diffusing capacity is mildly decreased and normalizes when corrected for alveolar volume. Clinical correlation is recommended. There are no prior studies for comparison
== END 2020-07-04 07:58 | disposition home or self-care (01) ==
PROVIDERS: PCP Family Medicine; Visit Provider Family Medicine
DX: Z77.090 Contact with and (suspected) exposure to asbestos (principal)
CPT/HCPCS: 94060; 94726; 94729

== ENCOUNTER 2020-08-14 15:57 | Outpatient (CLI) | payer MEDICARE, MEDICAID, SELFPAY ==
--- NOTE | ~2020-08-14 | MR_ITS ---
EXAMINATION: MR lumbar spine wo con DATE: 08/14/2020 17:05 INDICATION: Lumbago. TECHNIQUE: Magnetic resonance imaging (MRI) of the lumbar spine was performed without intravenous con trast. Sequences included sagittal T2-weighted FSE, sagittal T2-weighted FS FSE, sagittal T1-weighted FSE, and axial T2-weighted FSE. COMPARISON: Lumbar spine MRI 07/25/2018 FINDINGS: Bone alignment is normal. Vertebral body heights are normal. There is mildly decreased disc height at L3-L4 and L4-L5 and moderately decreased disc height at L5-S1. The distal spinal cord sign al intensity is normal. The conus medullaris is at L1. The following disc levels are specifically dis cussed: L1-L2: The disc does not extend beyond the endplate margin. There is mild bilateral facet joint osteo arthritis. There is no neural foraminal stenosis. There is no central canal stenosis. L2-L3: The disc does not extend beyond the endplate margin. There is mild bilateral facet joint osteo arthritis. There is no neural foraminal stenosis. There is no central canal stenosis. L3-L4: The disc is bulging and has an annular fissure. There is moderate right and mild left facet faisal int osteoarthritis. There is mild bilateral neural foraminal stenosis. There is mild central canal st enosis. L4-L5: The disc is bulging and has an annular fissure. There is moderate bilateral facet joint osteoa rthritis. There is moderate bilateral neural foraminal stenosis. There is mild central canal stenosis . L5-S1: The disc is bulging and has an annular fissure. There is severe bilateral facet joint osteoart hritis. There is mild right and moderate left neural foraminal stenosis. There is mild central canal stenosis. IMPRESSION: 1. Moderate lumbar spondylosis, stable from 07/25/2018. Reviewed, dictated and finalized at location B.
--- NOTE | ~2020-08-14 | MR_ITS ---
EXAMINATION: MR cervical spine wo con DATE: 08/14/2020 16:45 INDICATION: Cervicalgia TECHNIQUE: Magnetic resonance imaging (MRI) of the cervical spine was performed without intravenous c ontrast. Sequences included sagittal T2-weighted FSE, sagittal T2-weighted FS FSE, sagittal T1-weight ed FSE, axial MERGE and axial T2-weighted FSE. COMPARISON: CT dated 01/16/2019 FINDINGS: Bone alignment is normal. Vertebral body heights are normal. Bone marrow signal intensity is normal . Intervertebral disc heights are normal. There are disc bulges at C3-C4 through C6-C7 resulting in m inimal to mild central canal stenosis greatest at C4-C5. Cord signal intensity is normal. Multilevel minimal to mild uncovertebral and facet osteoarthritis which does not result in significant neural fo raminal stenosis. Cervical soft tissues are unremarkable. IMPRESSION: 1. Minimal to mild cervical spondylosis. Reviewed, dictated and finalized at location A.
== END 2020-08-14 15:58 | disposition home or self-care (01) ==
PROVIDERS: PCP Family Medicine
DX: M47.896 Other spondylosis, lumbar region (principal); M47.892 Other spondylosis, cervical region
CPT/HCPCS: 72141; 72148

== ENCOUNTER 2021-02-04 08:42 | Outpatient (CLI) | payer MEDICARE, MEDICAID, SELFPAY ==
--- NOTE | ~2021-02-04 | MR_ITS ---
EXAMINATION: MR lumbar spine wo con DATE: 02/04/2021 09:27 INDICATION: Lumbar spinal stenosis. TECHNIQUE: Magnetic resonance imaging (MRI) of the lumbar spine was performed without intravenous con trast. Sequences included sagittal T2-weighted FSE, sagittal T2-weighted FS FSE, sagittal T1-weighted FSE, and axial T2-weighted FSE. COMPARISON: Lumbar spine MRI 08/14/2020 FINDINGS: Bone alignment is normal. Vertebral body heights are normal. There is mildly decreased disc height at L3-L4, L4-L5, and L5-S1. The distal spinal cord signal intensity is normal. The conus medu llaris is at L1. The following disc levels are specifically discussed: L1-L2: The disc does not extend beyond the endplate margin. There is mild bilateral facet joint osteo arthritis. There is no neural foraminal stenosis. There is no central canal stenosis. L2-L3: The disc does not extend beyond the endplate margin. There is mild bilateral facet joint osteo arthritis. There is no neural foraminal stenosis. There is no central canal stenosis. L3-L4: The disc is bulging and has an annular fissure. There is mild bilateral facet joint osteoarthr itis. There is moderate right and mild left neural foraminal stenosis. There is mild central canal st enosis. L4-L5: The disc is bulging and has an annular fissure. There is mild bilateral facet joint osteoarthr itis. There is moderate bilateral neural foraminal stenosis. There is mild central canal stenosis. L5-S1: The disc is bulging and has an annular fissure. There is mild bilateral facet joint osteoarthr itis. There is mild right and moderate left neural foraminal stenosis. There is mild central canal st enosis. IMPRESSION: 1. Moderate lumbar spondylosis, stable from 08/14/2020. Reviewed, dictated and finalized at location A.
== END 2021-02-04 08:43 | disposition home or self-care (01) ==
PROVIDERS: PCP Family Medicine; Visit Provider Physician Assistant
DX: M47.817 Spondylosis without myelopathy or radiculopathy, lumbosacral region (principal)
CPT/HCPCS: 72148

== ENCOUNTER 2021-02-22 14:02 | Outpatient (CLI) | payer MEDICARE, MEDICAID, SELFPAY ==
--- NOTE | ~2021-02-22 | US_ITS ---
US arterial ankle brachial ind INDICATION: Peripheral vascular disease TECHNIQUE: Segmental pressures and plethysmographic and Doppler waveforms of the brachial and lower e xtremity arteries were obtained. COMPARISON: None. FINDINGS: Right and left brachial artery pressures of 129 mm Hg and 127 mm Hg, respectively, are concordant (no rmal difference <= 30 mmHg). The right ankle-brachial index (ELVER) is 1.07 (normal >= 0.9-1.0). The right great toe-brachial index (TBI) is 0.43 (normal >= 0.60). The left ELVER is 1.09. The left TBI is 0.43. IMPRESSION: 1. Normal bilateral ankle-brachial indices. 2: Diminished bilateral toe brachial indices, consistent with mild peripheral arterial disease. Reviewed, dictated and finalized at location A. IMPRESSION: 1. Normal bilateral ankle-brachial indices. 2: Diminished bilateral toe brachial indices, consistent with mild peripheral a rterial disease.
== END 2021-02-22 14:03 | disposition home or self-care (01) ==
PROVIDERS: PCP Physician Assistant; Visit Provider Physician Assistant
DX: I73.9 Peripheral vascular disease, unspecified (principal)
CPT/HCPCS: 93922

== ENCOUNTER 2021-11-28 14:06 | Emergency (ER) | payer MEDICARE, MEDICAID, SELFPAY ==
--- NOTE | 2021-11-28 14:07 | ED.WOUNDLAC ---
HPI - Wound/Laceration General Stated Complaint: lac right 4th finger Time Seen by Provider: 11/28/21 14:07 Source: patient Mode of arrival: ambulatory Limitations: no limitations History of Present Illness HPI narrative: Mr. Saldivar is a 45-year-old male patient presenting to the clinic today with complaints of a laceration to his right fourth finger. He reports he is a diabetic and he is concerned about it becoming infected. 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 Tetanus UTD. Related Data Home Medications Medication Instructions Recorded Confirmed albuterol sulfate 90 mcg/actuation 2 inh inhalation DIRECTED 07/14/19 01/06/20 aerosol inhaler aspirin 81 mg chewable tablet 81 mg PO DAILY 12/13/19 01/06/20 carbamazepine 200 mg 200 mg PO BID 12/13/19 01/06/20 tablet,extended release,12 hr (Tegretol XR) cyclobenzaprine 5 mg tablet 5 mg PO TID 12/13/19 01/06/20 meloxicam 15 mg tablet 15 mg PO DAILY 12/13/19 01/06/20 nortriptyline 10 mg capsule 20 mg PO HS 12/13/19 01/06/20 tiotropium bromide 18 mcg capsule 1 cap inhalation DAILY 12/13/19 01/06/20 with inhalation device (Spiriva with HandiHaler) ondansetron HCl 8 mg tablet 02/17/20 Allergies Allergy/AdvReac Type Severity Reaction Status Date / Time oxcarbazepine Allergy Unknown UPSET Verified 11/28/21 14:13 STOMACHE primidone Allergy Unknown Seizure Verified 11/28/21 14:13 salmeterol Allergy Unknown Seizure Verified 11/28/21 14:13 FLUTICASONE PROPIONATE Allergy Unknown Seizure Uncoded 12/13/19 19:08 SALMETEROL XINAFOATE Allergy Unknown Seizure Uncoded 12/13/19 19:08 Review of Systems Review of Systems: Pertinent positives per HPI. Patient denies any fever, chills, rash, headache, visual changes, dizziness, cough, runny nose, sore throat, shortness of breath, chest pain, palpitations, nausea, vomiting, diarrhea, constipation, abdominal pain, or any urinary issues. [facility] Past Medical History Medical History Asthma DDD (degenerative disc disease) Hx of migraines Seizures Spinal stenosis Surgical History Surgical History History of colonoscopy History of foot surgery Left History of sinus surgery History of vasectomy Family History Family History Father Acute myocardial infarction Cerebrovascular accident Mother Acute myocardial infarction Cerebrovascular accident Social History Social History Smoking status: Never smoker Tobacco type: cigarettes Second hand tobacco smoke exposure: Yes Alcohol intake: never Substance use: never Additional occupation/education comments: Disable Gender identity (if verbalized by the patient): Male Comments At the time of my signature, I reviewed and agree with the nursing past medical, surgical, social, and family history. There is no relevant family history pertinent to the patient complaint. Exam Narrative: General: Well-developed, well nourished, in no apparent distress Head: Normocephalic, atraumatic. Cardio: Regular rate and rhythm, s1 and s2 normal, no murmur appreciated. Resp: Clear to auscultation bilaterally, no rhonchi, rales, wheezing or rubs. Integumentary: [place], warm, and dry, intact without lesion, superficial (paper cut) laceration to the fourth right distal volar finger. No redness or bleeding noted Course Course Emergency Course: Portions of this record may have been created with voice recognition software. Level of Care: Express Care Visit Vital Signs Vital signs: Vital signs reviewed MDM - Wound/Laceration MDM Narrative Medical decision making narrative: At the time of visit patient is resting comf
[2021-11-28 14:15] VITALS: BP 143/78; PULSE 93; RESP 18; TEMP 36.7; O2SAT 99
== END 2021-11-28 14:28 | disposition home or self-care (01) ==
PROVIDERS: Emergency Provider Nurse Practitioner Family
DX: S61.214A Laceration without foreign body of right ring finger without damage to nail, initial encounter (principal); X58.XXXA Exposure to other specified factors, initial encounter; J45.909 Unspecified asthma, uncomplicated; G40.909 Epilepsy, unspecified, not intractable, without status epilepticus; M48.00 Spinal stenosis, site unspecified; Z98.52 Vasectomy status; Z79.82 Long term (current) use of aspirin
CPT/HCPCS: 99212; G0463

== ENCOUNTER 2022-07-08 20:50 | Emergency (ER) | payer MEDICARE, MEDICAID, SELFPAY ==
[2022-07-08 21:13] VITALS: BP 113/83; PULSE 121; RESP 18; TEMP 37.4; O2SAT 98
[2022-07-08 22:05] LABS: Appearance Urine Clear (Clear); Bacteria Urine None Seen /hpf; Bilirubin Urine Negative (Negative); Color Urine Yellow (Yellow); Glucose Urine UA Negative (Negative); Ketones Urine Trace mg/dL (Negative); Leukocyte Esterase Ur 1+ LEU/UL (Negative); Nitrate Urine Negative (Negative); Non Pathogenic Casts 0-2; Protein Urine Trace mg/dL (Negative); Specific Grav Ur 1.023 (1.001-1.035); Squamous Epithelial Cell Urine None seen /hpf (Few); Urobilinogen Urine 0.2 mg/dL (<2.0); WBC Urine 51-100 /hpf; pH Urine 7.5 (5.0-9.0)
[2022-07-08 22:08] LABS: Add Urine Microscopic? YES
[2022-07-08 23:34] VITALS: BP 104/56; PULSE 116; RESP 18; O2SAT 98
--- NOTE | 2022-07-09 01:11 | PC.NURSE ---
Pt. states I am going to go somewhere else. pt. ambulated out of ed w/ steady gait
== END 2022-07-09 01:11 | disposition left against medical advice (07) ==
LOC: ANHED 07-09 01:21
PROVIDERS: Emergency Provider Emergency Medicine
DX: R10.9 Unspecified abdominal pain (principal)
CPT/HCPCS: 81001; 81003; 87086; 99199

== ENCOUNTER 2022-08-19 18:13 | Emergency (ER) | payer MEDICARE, MEDICAID, SELFPAY ==
--- NOTE | 2022-08-19 18:32 | ED.URI ---
HPI - URI/Sore Throat General Chief Complaint: Upper Respiratory Infection Stated Complaint: Sinus Time Seen by Provider: 08/19/22 18:32 Source: patient, RN notes reviewed and old records reviewed Mode of arrival: ambulatory Limitations: no limitations History of Present Illness HPI Narrative: 46-year-old male presents to the [facility] with a sore throat, feeling like there is a cold in his chest. has had a cough. Denies fevers. No treatment prior to arrival symptoms started yesterday Treatments prior to arrival: none Related Data Home Medications Medication Instructions Recorded Confirmed albuterol sulfate 90 mcg/actuation 2 inh inhalation DIRECTED 07/14/19 11/28/21 aerosol inhaler aspirin 81 mg chewable tablet 81 mg PO DAILY 12/13/19 11/28/21 carbamazepine 200 mg 200 mg PO BID 12/13/19 11/28/21 tablet,extended release,12 hr (Tegretol XR) cyclobenzaprine 5 mg tablet 5 mg PO TID 12/13/19 11/28/21 nortriptyline 10 mg capsule 20 mg PO HS 12/13/19 11/28/21 tiotropium bromide 18 mcg capsule 1 cap inhalation DAILY 12/13/19 11/28/21 with inhalation device (Spiriva with HandiHaler) metformin 1,000 mg tablet 1,000 mg PO DAILY 11/28/21 11/28/21 montelukast 10 mg tablet 10 mg PO DAILY 11/28/21 11/28/21 rosuvastatin 5 mg tablet 5 mg PO DAILY 11/28/21 11/28/21 Allergies Allergy/AdvReac Type Severity Reaction Status Date / Time oxcarbazepine Allergy Unknown UPSET Verified 08/19/22 18:36 STOMACHE primidone Allergy Unknown Seizure Verified 08/19/22 18:36 salmeterol Allergy Unknown Seizure Verified 08/19/22 18:36 FLUTICASONE PROPIONATE Allergy Unknown Seizure Uncoded 08/19/22 18:36 SALMETEROL XINAFOATE Allergy Unknown Seizure Uncoded 08/19/22 18:36 Review of Systems Review of Systems: All systems reviewed & are unremarkable except as noted in HPI and below Constitutional: Constitutional: Reports no additional constitutional complaints Eyes: Eyes: Reports no additional eye complaints ENT: Reports as per HPI and Reports sore throat Cardiovascular: Cardiovascular: Reports no additional cardiovascular complaints, Denies chest pain and Denies dyspnea Respiratory: Respiratory: Reports as per HPI, Reports chest congestion, Denies cough and Denies dyspnea Gastrointestinal: Gastrointestinal: Reports no additional gastrointestinal complaints, Denies abdominal pain, Denies nausea and Denies vomiting Musculoskeletal: Musculoskeletal: Reports no additional musculoskeletal complaints Integumentary/Breasts: Skin/Breast: Reports system reviewed and no additional complaints, except as docu Neurologic: Reports system reviewed and no additional complaints, except as documented Psychiatric: Psychiatric: Reports no additional psychiatric complaints Allergic/Immunologic: Allergic/Immunologic: Reports no additional allergic/immunologic complaints PMFSH Past Medical History Medical History Asthma DDD (degenerative disc disease) Hx of migraines Seizures Spinal stenosis Surgical History Surgical History History of colonoscopy History of foot surgery Left History of sinus surgery History of vasectomy Family History Family History Father Acute myocardial infarction Cerebrovascular accident Mother Acute myocardial infarction Cerebrovascular accident Social History Social History Smoking status: Never smoker Tobacco type: cigarettes Second hand tobacco smoke exposure: Yes Alcohol intake: never Substance use: never Living arrangements: with family Additional occupation/education comments: Disable Gender identity (if verbalized by the patient): Male Comments At the time of my signature, I reviewed and agree with the nursing past medical, surg
[2022-08-19 18:38] VITALS: BP 129/73; PULSE 96; RESP 16; TEMP 36.5; O2SAT 100
== END 2022-08-19 18:55 | disposition home or self-care (01) ==
PROVIDERS: Emergency Provider Nurse Practitioner
DX: J02.0 Streptococcal pharyngitis (principal); Z20.822 Contact with and (suspected) exposure to COVID-19; J45.909 Unspecified asthma, uncomplicated; G40.909 Epilepsy, unspecified, not intractable, without status epilepticus; M48.00 Spinal stenosis, site unspecified; Z98.52 Vasectomy status
CPT/HCPCS: 87426; 87880; 99213; C9803; G0463

== ENCOUNTER 2023-08-24 18:46 | Emergency (ER) | payer MEDICARE, MEDICAID, SELFPAY ==
--- NOTE | ~2023-08-24 | XR_ITS ---
EXAMINATION: XR chest 1V portable Exam Date/Time: 08/24/2023 19:19 CDT HISTORY: dyspnea Comparison: 05/05/2020. RESULT: Lines, tubes, and devices: None. Lungs and pleura: Subsegmental left basilar opacities. Cardiomediastinal silhouette: Stable. Other: No acute osseous or upper abdominal finding. IMPRESSION: Subsegmental left basilar atelectasis/consolidation. Reviewed, dictated and finalized at location K.
--- NOTE | ~2023-08-24 | CT_ITS ---
EXAMINATION: CT soft tissue neck w con DATE: 08/24/2023 22:37 INDICATION: Dyspnea TECHNIQUE: Computed tomography (CT) of the neck was performed with 75 mL Omnipaque-350 intravenous co ntrast. Automated exposure control and iterative reconstruction technique were employed. The dose-francis gth product was 518.92 mGy-cm. COMPARISON: None FINDINGS: The thyroid gland is unremarkable. The submandibular and parotid glands are symmetric. There is n o cervical lymphadenopathy. There are no masses identified. The superior mediastinum is unremarka ble. The airway is unremarkable. Parapharyngeal and pre-glottic fat planes are preserved. Stephanie l enhancing neck vessels. The orbits are unremarkable. Visualized sinuses and mastoid air cells ar e well aerated. Clear lung apices. Normal regional bones. IMPRESSION: Unremarkable CT soft tissue neck findings. Reviewed, dictated and finalized at location K.
[2023-08-24 18:48] VITALS: BP 113/83; PULSE 120; RESP 31; TEMP 36.5; O2SAT 100
--- NOTE | 2023-08-24 18:55 | ECG_ITS ---
SEE SCANNED COPY FOR CONFIRMED REPORT. MTDD
[2023-08-24 18:56] VITALS: O2SAT 100
--- NOTE | 2023-08-24 19:10 | PC.NURSE ---
Report from ROMIE Puga. Resp even and nonlabored. No difficulty breathing or swallowing at this time.
[2023-08-24] MEDS: diphenhydrAMINE HCl INJ 50 MG/ML VIAL IV PUSH (19:20)
[2023-08-24] MEDS: SODIUM CHLORIDE 0.9% IV 2,000 ML 999 ML IV CONT (19:20)
[2023-08-24] MEDS: dexAMETHasone SOD PHOS INJ 10 MG/ML 1 ML VIAL IV PUSH (19:21)
[2023-08-24] MEDS: FAMOTIDINE 20 MG/2 ML VIAL 40 MG IV PUSH (19:21)
[2023-08-24 19:30] VITALS: BP 112/70; PULSE 102; RESP 18; O2SAT 95
[2023-08-24 19:36] LABS: Basophils Absolute Auto 0.1 K/mm3 (0.0-0.1); Basophils Percent Auto 0.6 % (0.2-1.2); Eosinophils Absolute Auto 0.1 K/mm3 (0-0.3); Immature Granulocyte Absolute 0.02 K/mm3 (0.00-0.031); Immature Granulocyte Percent A 0.3 % (0-0.5); Lymphocytes Absolute Auto 2.19 K/mm3 (0.9-3.2); Lymphocytes Percent Auto 27.5 % (18.3-44.2); Mean Corpuscular HGB Conc 32.6 g/dl (32-36); Mean Corpuscular Volume 92.3 fl (80-100); Mean Platelet Volume 9.9 fl (7.4-10.4); Monocytes Absolute Auto 0.8 K/mm3 (0.1-0.6); Monocytes Percent Auto 9.4 % (2.6-8.5); Neutrophils Absolute Auto 4.9 K/mm3 (1.3-6.7); Neutrophils Percent Auto 61.2 % (45.5-73.1); Platelet Count Result 191 k/mm3 (150-375); Red Blood Count 4.66 M/mm3 (4.6-6.20); Red Cell Distribution Width 13.4 % (11.5-14.5)
[2023-08-24 19:45] LABS: Alanine Aminotransferase 33 U/L (6-50); Albumin Level 4.3 g/dL (3.5-5.1); Alkaline Phosphatase 101 U/L (38-126); Anion Gap 8 mmol/L (4-12); Aspartate Amino Transferase 27 U/L (17-59); Bilirubin,Total 0.4 mg/dL (0.2-1.3); Blood Urea Nitrogen 15 mg/dL (9-20); Calcium 9.7 mg/dL (8.4-10.2); Carbon Dioxide 24 mmol/L (22-30); Chloride 106 mmol/L (98-107); Estimated CRCL calculation 82 ml/min; Estimated Glomerular Filt Rate > 60; Glucose 148 mg/dL (65-110); Potassium 3.4 mmol/L (3.4-5.0); Sodium 138 mmol/L (137-145)
--- NOTE | 2023-08-24 19:46 | ED.GENADULT ---
HPI - General Adult General Chief complaint: Allergic Reaction Stated complaint: allergic Time Seen by Provider: 08/24/23 19:00 History of Present Illness HPI narrative: This is a 47-year-old male with history of epilepsy presenting for allergic reaction. Patient felt like he was going to have a seizure because he started to feel faint. He then took some of his sons intranasal diazepam. He then developed throat irritation swelling and felt like he could not breathe. His symptoms are improving. He has not developed hives nausea vomiting diarrhea. He has no history of anaphylactic reactions. He has never taken diazepam before. Patient did not end up having a seizure. His seizures are well controlled with Keppra been several months since he has had one. His neurologist is at [facility]. Related Data Home Medications Medication Instructions Recorded Confirmed albuterol sulfate 90 mcg/actuation 2 inh inhalation DIRECTED 07/14/19 11/28/21 aerosol inhaler aspirin 81 mg chewable tablet 81 mg PO DAILY 12/13/19 11/28/21 carbamazepine 200 mg 200 mg PO BID 12/13/19 11/28/21 tablet,extended release,12 hr (Tegretol XR) cyclobenzaprine 5 mg tablet 5 mg PO TID 12/13/19 11/28/21 nortriptyline 10 mg capsule 20 mg PO HS 12/13/19 11/28/21 tiotropium bromide 18 mcg capsule 1 cap inhalation DAILY 12/13/19 11/28/21 with inhalation device (Spiriva with HandiHaler) metformin 1,000 mg tablet 1,000 mg PO DAILY 11/28/21 11/28/21 montelukast 10 mg tablet 10 mg PO DAILY 11/28/21 11/28/21 rosuvastatin 5 mg tablet 5 mg PO DAILY 11/28/21 11/28/21 Allergies Allergy/AdvReac Type Severity Reaction Status Date / Time oxcarbazepine Allergy Unknown UPSET Verified 08/19/22 18:36 STOMACHE primidone Allergy Unknown Seizure Verified 08/19/22 18:36 salmeterol Allergy Unknown Seizure Verified 08/19/22 18:36 FLUTICASONE PROPIONATE Allergy Unknown Seizure Uncoded 08/19/22 18:36 SALMETEROL XINAFOATE Allergy Unknown Seizure Uncoded 08/19/22 18:36 [facility] Past Medical History Medical History Asthma DDD (degenerative disc disease) Hx of migraines Seizures Spinal stenosis Surgical History Surgical History History of colonoscopy History of foot surgery Left History of sinus surgery History of vasectomy Family History Family History Father Acute myocardial infarction Cerebrovascular accident Mother Acute myocardial infarction Cerebrovascular accident Social History Social History Smoking status: Never smoker Tobacco type: cigarettes Second hand tobacco smoke exposure: Yes Alcohol intake: never Substance use: never Living arrangements: with family Additional occupation/education comments: Disable Gender identity (if verbalized by the patient): Male Exam Narrative: APPEARANCE: No apparent distress. Head: No swelling of the tongue lips or uvula EYES: EOMI, NOSE: Atraumatic NECK: Trachea midline RESPIRATORY: No increased rate of breathing CTAB CARDIOVASCULAR: RRR, ABDOMINAL: Non-distended soft nontender MUSCULOSKELETAl: No obvious deformities NEURO: Alert. Cranial nerves 2-12 grossly intact. Sensation light touch, motor function cerebellar function intact for 4 extremities. Gait exam was normal. SKIN:: No urticaria or hives PSYCHIATRIC: Normal affect Course Vital Signs Vital signs: Vital Signs Temperature 97.7 F 08/24/23 18:48 Pulse Rate 120 H 08/24/23 18:48 Respiratory Rate 31 H 08/24/23 18:48 Blood Pressure 113/83 08/24/23 18:48 Pulse Oximetry 100 08/24/23 18:48 Oxygen Delivery Room Air 08/24/23 18:48 Temperature 97.7 F 08/24/23 18:48 Pulse Rate 102 H 08/24/23 19:30 Respiratory Rate 18 08/24/23 19:30 Blood Pressure
[2023-08-24 22:36] LABS: Troponin I < 0.012 ng/mL (0.000-0.034)
[2023-08-24 23:25] LABS: Troponin I < 0.012 ng/mL (0.000-0.034)
[2023-08-24 23:43] VITALS: BP 136/96; PULSE 94; O2SAT 97
== END 2023-08-24 23:56 | disposition home or self-care (01) ==
PROVIDERS: Emergency Provider Emergency Medicine
DX: T78.40XA Allergy, unspecified, initial encounter (principal); G40.909 Epilepsy, unspecified, not intractable, without status epilepticus; J45.909 Unspecified asthma, uncomplicated; E11.9 Type 2 diabetes mellitus without complications; Z79.82 Long term (current) use of aspirin; Z79.84 Long term (current) use of oral hypoglycemic drugs; X58.XXXA Exposure to other specified factors, initial encounter
CPT/HCPCS: 36415; 70491; 71045; 80053; 84484; 85025; 93005; 96361; 96374; 96375; 99284; J1100; J1200; J7030; Q9967

== ENCOUNTER 2023-08-29 08:31 | Outpatient (CLI) | payer MEDICARE, MEDICAID, SELFPAY ==
--- NOTE | ~2023-08-29 | MR_ITS ---
EXAMINATION: MR ankle LT wo con DATE: 08/29/2023 09:33 INDICATION: Talar head fracture TECHNIQUE: Magnetic resonance imaging (MRI) of the left ankle was performed without intravenous contr ast. Sequences included sagittal, coronal, and axial proton-density weighted fast spin echo without a nd with fat saturation. COMPARISON: None. FINDINGS: Medial ankle ligaments: Deep and superficial deltoid ligaments as well as the spring ligament are normal. Lateral ankle ligaments: The anterior and posterior inferior tibiofibular ligaments are normal. The anterior talofibular, calc aneofibular and posterior talofibular ligaments are normal. Tendons: Achilles tendon is normal. The peroneus longus tendon is normal. The peroneus brevis tendon appears t o divide with 1 diminutive slip extending to its typical insertion at the base of the fifth metatarsa l and with 2 additional slips one larger and one smaller extending to attach to the lateral aspect of the calcaneus the larger and more anterior along the anterior margin of the retro trochlear eminence and the second smaller along its posterior margin. The tibialis anterior and extensor hallucis longu s and extensor digitorum longus tendons are normal. The tibialis posterior, flexor digitorum longus a nd flexor hallucis longus tendons are normal. Plantar fascia: Latter aponeurosis is normal. Bones/other: There are postoperative changes with multiple foci of susceptibility artifact extending caudally over lying the posterior to the neurovascular bundle at the distal lower leg extending across the ankle to the plantar aspect of the foot consistent with likely prior tarsal tunnel release. Bone alignment is normal. There is mild nonuniform joint space narrowing at the inferior aspect of the talonavicular a rticulation. There is mild marrow edema surrounding a small shallow concavity without overlying carti reyes along the plantar margin of the articular surface of the head of the talus which could represent either a high-grade chondromalacia with remodeling of the cortex and underlying edema-like signal ch rio or sequela of a subacute osteochondral impaction fracture. Small low signal intensity bone islan d at the posterior calcaneus. Marrow signal is otherwise normal throughout. No other fractures or pat hologic marrow replacing process. Joint spaces appear otherwise normal. There is additional increased fluid signal in the visualized distal flexor hallucis longus muscle belly. Fluid: Physiologic amount fluid in the joint spaces. Mild edema at the K[place] fat pad. IMPRESSION: 1. 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 2. Nonspecific increased fluid signal in the distal flexor hallucis longus muscle belly which could b e due to muscle strain, denervation change or other nonspecific myositis which there is a wide differ ential. 3. Postoperative change of prior tarsal tunnel release. 4. Likely normal anatomic variant peroneus brevis tendon which divides into 3 segments, one with norm al insertion at the fifth metatarsal base and the other to inserting along the lateral calcaneus. Reviewed, dictated and finalized at location A. IMPRESSION: 1. 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 2. Nonspecific increased fluid signal in the distal flexor hallucis longus musc le belly which could be due to muscle strain, denervation change or other nonsp ecific myositis which there is a wide differential. 3. Postoperative jose c
== END 2023-08-29 08:32 | disposition home or self-care (01) ==
LOC: ANHIMG 08:39
PROVIDERS: PCP Family Medicine; Visit Provider Family Medicine
DX: R93.89 Abnormal findings on diagnostic imaging of other specified body structures (principal)
CPT/HCPCS: 73721

== ENCOUNTER 2023-12-11 18:48 | Emergency (ER) | payer MEDICARE, MEDICAID, SELFPAY ==
--- NOTE | ~2023-12-11 | XR_ITS ---
EXAMINATION: XR abdomen/kub 1V DATE: 12/11/2023 19:28 INDICATION: Lower abdominal pain. Constipation 1 week prior. TECHNIQUE: A supine view of the abdomen on 2 radiographs was obtained. COMPARISON: None. FINDINGS: Moderate amount of stool in the ascending, transverse and proximal descending colon. Small amount of gas without significant stool in the more distal descending and sigmoid colon. No dilated gas-filled loops of bowel to suggest obstruction. Bones are unremarkable. IMPRESSION: 1. Normal bowel gas pattern with moderate amount of stool in the proximal to mid colon. Reviewed, dictated and finalized at location A. IMPRESSION: 1. Normal bowel gas pattern with moderate amount of stool in the proximal to mi d colon.
[2023-12-11 19:04] VITALS: BP 138/74; PULSE 88; RESP 20; TEMP 36.4; O2SAT 100
[2023-12-11 19:14] LABS: EDUAAPPEAR Cloudy; EDUABILI Negative; EDUABLOOD Negative; EDUACOLOR1 Yellow; EDUAGLUCOSE Negative; EDUAKETONE Negative; EDUALEUKO Negative; EDUANITRATE Negative; EDUAPROTEIN Negative
--- NOTE | 2023-12-11 19:17 | ED.MALEGU ---
HPI - Male Genitourinary General Chief complaint: Urogenital-Male Stated complaint: bladder or kidney issue Time Seen by Provider: 12/11/23 19:17 Source: patient Mode of arrival: ambulatory Limitations: no limitations History of Present Illness HPI Narrative: 48-year-old male presents with complaint of lower abdominal pain, urinary frequency, dysuria. Afebrile. Denies back pain. Reports constipation last week, took milk of magnesia and is better. Denies nausea vomiting. no concern for STI. Denies swelling, pain to testicles. All systems reviewed and negative except as noted above. Related Data Home Medications Medication Instructions Recorded Confirmed albuterol sulfate 90 mcg/actuation 2 inh inhalation DIRECTED 07/14/19 12/11/23 aerosol inhaler aspirin 81 mg chewable tablet 81 mg PO DAILY 12/13/19 12/11/23 carbamazepine 200 mg 200 mg PO BID 12/13/19 12/11/23 tablet,extended release,12 hr (Tegretol XR) tiotropium bromide 18 mcg capsule 1 cap inhalation DAILY 12/13/19 12/11/23 with inhalation device (Spiriva with HandiHaler) metformin 1,000 mg tablet 1,000 mg PO DAILY 11/28/21 12/11/23 montelukast 10 mg tablet 10 mg PO DAILY 11/28/21 12/11/23 rosuvastatin 5 mg tablet 5 mg PO DAILY 11/28/21 12/11/23 ipratropium 0.5 mg-albuterol 3 mg 3 ml inhalation DIRECTED 12/11/23 12/11/23 (2.5 mg base)/3 mL nebulization soln levetiracetam 500 mg tablet 500 mg PO DIRECTED 12/11/23 12/11/23 rimegepant 75 mg disintegrating 75 mg PO DIRECTED 12/11/23 12/11/23 tablet (Nurtec ODT) Allergies Allergy/AdvReac Type Severity Reaction Status Date / Time oxcarbazepine Allergy Unknown UPSET Verified 12/11/23 18:57 STOMACHE primidone Allergy Unknown Seizure Verified 12/11/23 18:57 salmeterol Allergy Unknown Seizure Verified 12/11/23 18:57 FLUTICASONE PROPIONATE Allergy Unknown Seizure Uncoded 12/11/23 18:57 SALMETEROL XINAFOATE Allergy Unknown Seizure Uncoded 12/11/23 18:57 Review of Systems Review of Systems: CONSTITUTIONAL: Denies fever, chills, or sweats. EYES: Denies visual changes, redness, or discharge. ENT: Denies rhinorrhea, congestion, sore throat, or otalgia. CARDIOVASCULAR: Denies chest pain, palpitations, or edema. RESPIRATORY: Denies cough or dyspnea. GASTROINTESTINAL: Reports lower abdominal pain. Denies nausea, vomiting, or diarrhea. GENITOURINARY: reports dysuria, frequency. Denies hematuria. SKIN: Denies rash or itching. MUSCULOSKELETAL: Denies back pain, joint pain, or myalgia. NEUROLOGIC: Denies headache, numbness, or weakness. PSYCHIATRIC: Denies anxiety or depression. All other systems reviewed are negative, except as documented in HPI. [facility] Past Medical History Medical History Asthma DDD (degenerative disc disease) Hx of migraines Seizures Spinal stenosis Surgical History Surgical History History of colonoscopy History of foot surgery Left History of sinus surgery History of vasectomy Family History Family History Father Acute myocardial infarction Cerebrovascular accident Mother Acute myocardial infarction Cerebrovascular accident Social History Social History Smoking status: Never smoker Tobacco type: cigarettes Second hand tobacco smoke exposure: Yes Alcohol intake: never Substance use: never Living arrangements: with family Additional occupation/education comments: Disable Gender identity (if verbalized by the patient): Male Comments At time of signature, agree with nursing past medical, surgical, social and family history. There is no relevant family history pertinent to the presenting complaint. Exam Narrative: GENERAL: This is a well-nourished, well-developed patient, in no appare
== END 2023-12-11 19:45 | disposition home or self-care (01) ==
PROVIDERS: Emergency Provider Nurse Practitioner Family
DX: K59.00 Constipation, unspecified (principal); J45.909 Unspecified asthma, uncomplicated; G40.909 Epilepsy, unspecified, not intractable, without status epilepticus; M48.00 Spinal stenosis, site unspecified; Z98.52 Vasectomy status
CPT/HCPCS: 74018; 81003; 99213; G0463

== ENCOUNTER 2024-01-24 19:37 | Emergency (ER) | payer MEDICARE, MEDICAID, SELFPAY ==
[2024-01-24 19:45] VITALS: BP 131/70; PULSE 80; RESP 20; TEMP 36.6; O2SAT 100
--- NOTE | 2024-01-24 19:52 | ED.GENADULT ---
HPI - General Adult General Chief complaint: Ear Stated complaint: Right Ear Irritation Source: patient Mode of arrival: ambulatory Limitations: no limitations History of Present Illness HPI narrative: Patient presents for evaluation of right-sided ear pain since yesterday. He has associated tinnitus. No hearing loss or drainage from ear. No fever chills, nausea cough, shortness of breath. He had sinus surgery in the past. He does not smoke. He took 200 mg of ibuprofen without considerable improvement thereafter. He also tried putting some OTC drops in without improvement. He had improvement in his symptoms in the past when he has use those drops Related Data Home Medications Medication Instructions Recorded Confirmed albuterol sulfate 90 mcg/actuation 2 inh inhalation DIRECTED 07/14/19 01/24/24 aerosol inhaler aspirin 81 mg chewable tablet 81 mg PO DAILY 12/13/19 01/24/24 carbamazepine 200 mg 200 mg PO BID 12/13/19 01/24/24 tablet,extended release,12 hr (Tegretol XR) tiotropium bromide 18 mcg capsule 1 cap inhalation DAILY 12/13/19 01/24/24 with inhalation device (Spiriva with HandiHaler) metformin 1,000 mg tablet 1,000 mg PO DAILY 11/28/21 01/24/24 montelukast 10 mg tablet 10 mg PO DAILY 11/28/21 01/24/24 rosuvastatin 5 mg tablet 5 mg PO DAILY 11/28/21 01/24/24 ipratropium 0.5 mg-albuterol 3 mg 3 ml inhalation DIRECTED 12/11/23 01/24/24 (2.5 mg base)/3 mL nebulization soln levetiracetam 500 mg tablet 500 mg PO DIRECTED 12/11/23 01/24/24 rimegepant 75 mg disintegrating 75 mg PO DIRECTED 12/11/23 01/24/24 tablet (Nurtec ODT) nortriptyline 10 mg capsule 10 mg PO DAILY 01/24/24 01/24/24 Allergies Allergy/AdvReac Type Severity Reaction Status Date / Time oxcarbazepine Allergy Unknown UPSET Verified 01/24/24 19:48 STOMACHE primidone Allergy Unknown Seizure Verified 01/24/24 19:48 salmeterol Allergy Unknown Seizure Verified 01/24/24 19:48 FLUTICASONE PROPIONATE Allergy Unknown Seizure Uncoded 01/24/24 19:48 SALMETEROL XINAFOATE Allergy Unknown Seizure Uncoded 01/24/24 19:48 Review of Systems Review of Systems: CONSTITUTIONAL: Denies fever, chills, or sweats. EYES: Denies visual changes, redness, or discharge. ENT: Reports right-sided ear pain and tinnitus. Denies hearing loss or drainage from the ear. Denies rhinorrhea, congestion, sore throat, or otalgia. CARDIOVASCULAR: Denies chest pain, palpitations, or edema. RESPIRATORY: Denies cough or dyspnea. GASTROINTESTINAL: Denies abdominal pain, nausea, vomiting, or diarrhea. GENITOURINARY: Denies dysuria or hematuria. SKIN: Denies rash or itching. MUSCULOSKELETAL: Denies back pain, joint pain, or myalgia. NEUROLOGIC: Denies headache, numbness, dizziness, or weakness. PSYCHIATRIC: Denies anxiety or depression. [facility] Past Medical History Medical History Asthma DDD (degenerative disc disease) Hx of migraines Seizures Spinal stenosis Surgical History Surgical History History of colonoscopy History of foot surgery Left History of sinus surgery History of vasectomy Family History Family History Father Acute myocardial infarction Cerebrovascular accident Mother Acute myocardial infarction Cerebrovascular accident Social History Social History Smoking status: Never smoker Tobacco type: cigarettes Second hand tobacco smoke exposure: Yes Alcohol intake: never Substance use: never Living arrangements: with family Additional occupation/education comments: Disable Gender identity (if verbalized by the patient): Male Exam Narrative: GENERAL: Well-appearing, well-nourished, and in no acute distress. HEAD: Normocephalic, atraumatic
== END 2024-01-24 19:57 | disposition home or self-care (01) ==
PROVIDERS: Emergency Provider Nurse Practitioner
DX: H92.01 Otalgia, right ear (principal); J45.909 Unspecified asthma, uncomplicated; G40.909 Epilepsy, unspecified, not intractable, without status epilepticus; Z98.52 Vasectomy status; Z79.82 Long term (current) use of aspirin
CPT/HCPCS: 99213; G0463

== ENCOUNTER 2025-02-25 12:44 | Outpatient (CLI) | payer MEDICARE, MEDICAID, SELFPAY ==
--- OUTSIDE RECORDS SUMMARY | 2025-01-27 05:00 | XMS_ITS | Continuity of Care Document ---
Author Organization [facility] Address [address] [place] [address] Phone Care Team Providers Care Parts Identification Technician Name Role Phone Doser DPShubham Montilla DPM Unavailable Unavailab le Allergies, Adverse Reactions, Alerts Substance Reaction Status Criticality primidone Active No Information gabapentin Active No Information SALMETEROL XINAFOATE Active No Info rmation FLUTICASONE PROPIONATE Active No In formation Medications Medication Instructions Dosage Effective Dates (start - stop) Status Comments benzonatate 200 mg capsule TAKE 1 CAPSULE BY MOUTH THREE TIMES A DAY NEEDED - Active Paxlovid 300 mg (150 mg x 2)-100 mg tablets in a dose pack TAKE 2 TABS NIRMATRELVIR WITH 1 TAB RITONAVIR BY MOUTH TWICE DAILY FOR 5 DAYS DIRECTED ON PACKAGE - Active aspirin 81 mg tablet,delayed release TAKE 1 TABLET BY MOUTH EVERY DAY - Active metformin 1,000 mg tablet TAKE 1 TABLET BY MOUTH TWICE A DAY DIRECTED - Active duloxetine 60 mg capsule,delayed release TAKE 1 CAPSULE BY MOUTH EVERY DAY - Active ibuprofen 600 mg tablet TAKE 1 TABLET BY MOUTH EVERY 6 HOURS NEEDED - Active Nurtec ODT 75 mg disintegrating tablet TAKE 1 TABLET (75 MG TOTAL) BY MOUTH DAILY NEEDED FOR MIGRAINE - Active rosuvastatin 5 mg tablet TAKE 1 TABLET BY MOUTH EVERY DAY - Active fluticasone propionate 50 mcg/actuation nasal spray,suspension SPRAY 2 SPRAYS INTO EACH NOSTRIL ONCE DAILY - Active nortriptyline 10 mg capsule TAKE 2 CAPSULES BY MOUTH NIGHTLY AT BEDTIME. - Active Spiriva with HandiHaler 18 mcg and inhalation capsules INHALE 1 CAPSULE VIA HANDIHALER ONCE DAILY AT THE SAME TIME EVERY DAY - Active ipratropium 0.5 mg-albuterol 3 mg (2.5 mg base)/3 mL nebulization soln INHALE 3 ML VIA NEBULIZER 4 TIMES A DAY - Active montelukast 10 mg tablet TAKE 1 TABLET BY MOUTH EVERY DAY AT BEDTIME - Active levetiracetam 500 mg tablet TAKE 1 TABLET BY MOUTH THREE TIMES A DAY - Active albuterol sulfate HFA 90 mcg/actuation aerosol inhaler INHALE 1 OR 2 PUFFS BY MOUTH EVERY 4 HOURS NEEDED FOR SHORTNESS OF BREATH - Active amoxicillin 875 mg-potassium clavulanate 125 mg tablet TAKE 1 TABLET BY MOUTH EVERY 12 HOURS - No Longer Active Procedures Procedure Date Office/outpatient visit,est, mod 2024 Asp/inject intermed joint/bursa w/o US g uidance Kenalog 10mg/mL Office/outpatient visit,est, mod 2024 Inject tndn sheath/lgmnt/gangl cyst Asp/inject intermed joint/bursa w/o US g uidance Kenalog 10mg/mL Office/outpatient visit,est, low 2024 Inject tndn sheath/lgmnt/gangl cyst Kenalog 10mg/mL Office/outpatient visit,est, mod 2023 X-ray exam foot, minimum 3 views 2023 Global/Postop followup visit X-ray exam foot, minimum 3 views 2023 Global/Postop followup visit X-ray exam foot, minimum 3 views 2023 Post Op Shoe Dec-04-2023 Post Op Shoe X-ray exam ankle, minimum 3 views X-ray exam foot, minimum 3 views 2022 Global/Postop followup visit X-ray exam foot, minimum 3 views 2022 Global/Postop followup visit X-ray exam foot, minimum 3 views 2022 Tarsal Tunnel Release Office/outpatient visit,est, mod 2022 Office/outpatient visit,est, mod 2022 Inject nerve block, peripheral Inject nerve block, peripheral Office/outpatient visit,est, mod 2022 Inject nerve block, peripheral Inject nerve block, peripheral Kenalog 10mg/mL Supplemental Report Office/outpatient visit,est, mod 2022 Office/outpatient visit,est, mod 2022 Inject nerve block, peripheral Inject nerve block, peripheral Office/outpatient visit,est, mod 2022 Office/outpatient visit,est, mod 2022 Inject nerve block, peripheral Inject nerve block, peripheral Kenalog 10mg/mL Office/outpatient visit,new, mod 2022 X-ray exam ankle, minimum 3 views X-ray exam foot, minimum 3 views 2022 Rating Letter Office consultation, moderate 9 Office/outpatient visit,est, mod 2008 Supplemental Report Office/outpatient visit,new, mod 2008 X-ray exam of wrist, complete 9 Advance Directives Directive Yes / No Effective Date File Name No Information Encounters Encounter Description Practice Location Reason(s) For Visit Diagnoses Date Provider Providers Copied on Encounter Office/outpat ient visit,est, mod [facility], [address], [id number], [place] [phone] [facility] Follow Up of bilateral feet (chief complaint) Metatarsalgia, left footPain, left foot 5 Doser DPEladia Jalloh. [address] [address], [place], [place], [id number] , [place]. tel: [phone] Referring Provider: Shubham James, [address] [address], [place], [address] . tel:[phone] Office/outpat ient visit,[facility], [address] [place] [address], [place], [place], [id number], [place] [phone] [facility] Follow Up of pablo feet (chief complaint) Other enthesopathy of left foot and anklePlantar fasciitisMetata rsalgia, right foot 5 Doser DPEladia Jalloh. [address] [place] [address], [place], [place], [id number] , [place]. tel: [phone] Referring Provider: Shubham James, [address] [place] [address], [place], [address] . tel:[phone] Office/outpat ient visit,[facility], [address] [place] [address], [id number], [place] [phone] [facility] Follow Up of left foot (chief complaint) Plantar fasciitisOther enthesopathy of left foot and ankle 5 Doser DPEladia Jalloh. [address] [address], [place], [place], [id number] , [place]. tel: [phone] Referring Provider: Shubham James, [address] [address], [place], [address] . tel:[phone] [facility], [address] [place] [address], [id number], [place] tel:[phone] [facility] No Information 5 Doser DPEladia Jalloh. [address] [facility], [address] [address], [place], [id number] , [place]. tel:[phone] Office/outpat ient visit,est, mod [facility], [address] [address], [place], [id number], [place] tel:[phone] [facility] Fx of left talus, initial encounter for closed fxPain in left foot 4 Doser DPM Shubham. [address] [facility], [address] [address], [place], [place], [id number] , [place]. tel:[phone] Referring Provider: Shubham James, [facility] [address], [place], [address] . tel:[phone] [facility], [address] [place] [address], [place], [id number], [place] tel:[phone] [facility] Follow Up of bilateral foot sx (chief complaint) Pain in left footTarsal tunnel syndrome, left lower limbTarsal tunnel syndrome, right lower limbPain in right foot 4 Doser DPEladia Lordon. [address] [facility], [address] [place] [address], [place], [id number] , [place]. tel:[phone] Referring Provider: Shubham James, [address] [address], [place], [address] . tel:[phone] [facility], [address] [address], [place], [place], [id number], [place] tel:[phone] [facility] foot TTS surgery (chief complaint) Pain in left footTarsal tunnel syndrome, left lower limbTarsal tunnel syndrome, right lower limbPain in right foot 4 Doser DPM Shubham. [address] [facility], [address] [address], [place], [place], [id number] , [place]. tel:[phone] Referring Provider: Shubham Costello DPM A, [address] [facility] [address] [facility], [place], [address] . tel:[phone] [facility], [address] [address], [place], [place], [id number], [place] tel:[phone] [facility] Idiopathic progressive neuropathyPain in left footPain in right foot 4 Doser DPM Shubham. [address] [facility], [facility], [place], [place], [id number] , [place]. tel:[phone] Referring Provider: Callie Arias, [address] [address], [place], [address] . tel:[phone] [facility], [address] [place] [address], [place], [place], [id number], [place] tel:[phone] [facility] Pain in left footTarsal tunnel syndrome, left lower limbTarsal tunnel syndrome, right lower limb 3 Doser DPM Shubham. [address] [facility], [address] [address], [place], [id number] , [place]. tel:[phone] Referring Provider: Callie Arias, [address] [address], [place], [address] . tel:[phone] [facility], [address] [place] [address], [place], [id number], [place] tel:[phone] [facility] Follow Up of bilateral foot sx (chief complaint) Pain in left footTarsal tunnel syndrome, left lower limbTarsal tunnel syndrome, right lower limbPain in right foot 3 Doser DPM Shubham. [address] [facility], [address] [place] [address], [place], [id number] , [place]. tel:[phone] Referring Provider: Shubham Costello DPM A, [address] [address], [place], [address] . tel:[phone] [facility], [address] [place] [address], [place], [place], [id number], [place] tel:[phone] [facility] No Information 3 Doser MADHU Jalloh. [address] [place] [address], [place], [place], [id number] , [place]. tel: [phone] Referring Provider: Shubham Costello DPM A, [address] [place] [address], [place], [address] . tel:[phone] Office/outpat ient visit,est, [facility], [address] [place] [address], [place], [place], [id number], [place] tel:[phone] [facility] Both feet Tursal Tunnel Syndrome Idiopathic Neuropathy (chief complaint) Tarsal tunnel syndrome, left lower limbTarsal tunnel syndrome, right lower limb 3 Doser DPEladia Jalloh. [address] [place] [address], [place], [id number] , [place]. tel: [phone] Referring Provider: Callie Arias, [address] [place] [address], [place], [address] . tel:[phone] Office/outpat ient visit,est, [facility], [address] [place] [address], [id number], [place] tel:[phone] [facility] Both feet tursal tunnel syndrome pain worse (chief complaint) Tarsal tunnel syndrome, left lower limbTarsal tunnel syndrome, right lower limbIdiopathic progressive neuropathyPain in left footPain in right foot 3 Doser DPEladia Jalloh. [address] [place] [address], [place], [id number] , [place]. tel:[phone] Referring Provider: Shubham Costello DPM A, [address] [place] [address], [place], [address] . tel:[phone] Office/outpat ient visit,est, [facility], [address] [address], [place], [place], [id number], [place] tel:[phone] [facility] Tarsal Tunnel Syndrome both feet, current (chief complaint) Tarsal tunnel syndrome, left lower limbTarsal tunnel syndrome, right lower limbIdiopathic progressive neuropathy Sep-2 3 Doser DPEladia Jalloh. [address] [address], [place], [place], [id number] , [place]. tel:[phone] Referring Provider: Shubham James, [facility] [address], [place], [address] . tel:[phone] Office/outpat ient visit,est, [facility], [address] [place] [address], [place], [id number], [place] tel:[phone] [facility] bilateral foot pain (chief complaint) Idiopathic progressive neuropathyPain in left footPain in right footTarsal tunnel syndrome, left lower limbTarsal tunnel syndrome, right lower limb Aug- 3 Doser DPEladia Jalloh. [address] [address], [place], [place], [id number] , [place]. tel: [phone] Referring Provider: Shubham James, [address] [place] [address], [place], [address] . tel:[phone] Office/outpat ient visit,est, [facility], [address] [place] [address], [place], [id number], [place] tel:[phone] [facility] Follow Up of bilateral foot pain (chief complaint) Tarsal tunnel syndrome, left lower limbTarsal tunnel syndrome, right lower limbPain in left footPain in right foot May-0 3 Doser DPEladia Jalloh. [address] [address], [place], [id number] , [place]. tel: [phone] Office/outpat ient visit,est, [facility], [address] [place] [address], [place], [id number], [place] tel:[phone] [facility] f/u on feet and ankles bilat (chief complaint) Pain in left footTarsal tunnel syndrome, left lower limbTarsal tunnel syndrome, right lower limbPain in right foot Jun-3 0-202 3 Doser DPEladia Jalloh. [address] [facility], [address] [address], [place], [id number] , [place]. tel:[phone] Office/outpat ient visit,[facility], [facility], [address] [address], [place], [id number], [place] tel:[phone] [facility] emg results (chief complaint) Tarsal tunnel syndrome, left lower limbTarsal tunnel syndrome, right lower limbPain in left footPain in right foot Fe-2 3 Doser DPEladia Jalloh. [address] [address], [place], [place], [id number] , [place]. tel:[phone] Office/outpat ient visit,[facility], [facility], [address] [address], [place], [id number], [place] tel:[phone] [facility] Both Feet Both Ankels Work carts Ran Over Feet At Work (chief complaint) Pain in left footPain in right footTarsal tunnel syndrome, right lower limbTarsal tunnel syndrome, left lower limbIdiopathic progressive neuropathy Feb-0 7- 3 Doser DPEladia Jalloh. [address] [address], [place], [id number] , [place]. tel:[phone] Referring Provider: Shubham Doselisa LEUNG A, [address] [address], [place], [address] . tel:[phone] Rating Letter [facility], [address] [address], [place], [place], [id number], [place] tel:[phone] [facility] No Information Jun-2 8200 9 Avinash Molina. [address] [address], [place], [address] [place] [address] , . tel: [phone] Referring Provider: Callie Arias, [address] [facility] [address] [facility], [place], [place], [address] [place] [address] . tel:[phone] Office consultation, [facility], [address] [facility] [address], [place], [address] [place] [address], [phone] [facility] No Information 3 9 Avinash Molina. [address] [facility], [facility], [place], [address] [place] [address] , . tel: [phone] Referring Provider: Callie Arias, [address] [address], [place], [address] [place] [address] . tel:[phone] Office/outpat ient visit,[facility], [facility], [address] [address], [place], [address] [place] [address], [phone] [facility] No Information 0 9 Kym Ledesma. [address] [facility], [facility] [address], [place], [address] [place] [address] , . tel: [phone] Office/outpat ient visit,[facility], [address] [facility] [address], [place], [address] [place] [address], [phone] [facility] No Information 9 Kym Ledesma. [address] [facility], [place], [address] [place] [address] , . tel: [phone] Family History Family Member Type Diagnosis Age At Onset Father Problem (finding) Cancer, unknown Brother Problem (finding) Diabetes Father Problem (finding) Heart Disease Brother Problem (finding) Seizures Sister Problem (finding) Diabetes Father Problem (finding) Seizures Father Problem (finding) Hypertension Father Problem (finding) Stroke Mother Problem (finding) Kidney Disease Mother Problem (finding) Heart Disease Mother Problem (finding) Stroke Mother Problem (finding) Osteoarthritis Brother Problem (finding) Cancer, unknown Payers Payer name Insurance type Covered alliance party ID Authoriza tion(s) AARP Medicare Advantage O [facility] CI [id number] Social History Type Description Quantity Date Captured Comments Alcohol Use Details Unknown Caffeine Use Details Unknown Tobacco Use Status Current non-smoker Smoking Status Never smoker Non-Smoking Tobacco Use Details : No Details Available : No Details Available Sex Male Gender Identity Male Vital Signs Date / Time: Height Weight BMI Pulse Rate Blood Pressure Temperature Respiratory Rate Body Surface Area Head Circumference Head Circ. Percentile Wt./Jorge A. Percentile BMI percentile Pulse Ox Inhaled Ox 10:27 AM 70.00 in 78.018 kg (172.00 lbs) 24.6 8 kg/m eter (2) 1.96 meter(2) Chief Complaint And Reason For Visit From encounter dated '01/27/2025 10:00'. Follow Up of bilateral feet (chief complaint). Description: Patient presents to office for bilateral feet. Reason For Referral Reason For Referral No Information Plan Of Treatment Date Type Action Status Referral Ordered: X-ray exam foot, minimum 3 views Bilateral ordered Referral Ordered: EMG NCS Bilateral ordered Referral Ordered: X-ray exam ankle, minimum 3 views Bilateral ordered History Of Present Illness Encounter Date Complaint History Of Prese nt Illness Follow Up of bilateral feet Corina ent presents to office for bilateral feet. Follow Up of pablo feet Patient re turns for his feet. Follow Up of left foot Patient lisa baltazar for his left foot. Follow Up of bilateral foot sx foot TTS surgery Follow Up of bilateral foot sx Both feet Tursal Juni kiely Syndrome Idiopathic Neuropathy Both feet tursal juni keily syndrome pain worse Tarsal Tunnel Syndro me both feet, current bilateral foot pain Follow Up of bilateral foot pain f/u on feet and ankles bilat emg results Both Feet Both Carli s Work carts Ran Over Feet At Work Functional Status Date Functional Assessmen t No Information Instructions Date Instruction Additional Infor palmira No Information Assessments Type Assessment Date assessment M77.42 assessment M79.672 Patient Care Teams Name Effective Dates (start - stop) Status Members No Information
--- NOTE | ~2025-02-25 | CT_ITS ---
EXAMINATION:CT diagnostic chest wo con DATE: 02/25/2025 13:02 INDICATION: Solitary pulmonary nodule. TECHNIQUE: Computed tomography (CT) of the chest was performed without intravenous contrast. Automated exposure control and iterative reconstruction technique were employed. The dose-length product (DLP) was 86.70 mGy-cm. COMPARISON: None. FINDINGS: There is a 2 mm nodule in left lung lower lobe. There is no pneumonia or pleural effusion. The heart size is normal. No pericardial effusion. The bones are unremarkable. IMPRESSION: 1. Small pulmonary nodule, likely benign. Reviewed, dictated and finalized at location E. URE ROOM WORKER
--- OUTSIDE RECORDS SUMMARY | 2025-02-25 12:48 | XMS_ITS | Encounter Summary ---
Author Organization [facility] Address [address] [place] [address] Care Team Providers Care Director Of Kids Name Role Phone Gutierrez Yeung MD Unavailable [phone] Tina Herman MD Unavailable [phone] Alexandria Frausto MD Primary Care Provider [phone] Linda Mae MD Primary Care Provider Unavaila ble Encounter Details Date Type Department Care Team (Late st Contact Info) Description 05/13/2023 MyChart Message Enc [facility] Medical Group Multispecialty Care - [address], [address] [place] [address] Della Haro MD [address] [place] [address] Added Update June 2014 to October 2017 Social History Tobacco Use Types Packs/Day Years Used Date Smoking Tobacco: Never Smokeless Tobacco: Never Alcohol Use Standard Drinks/Week Comments Never 0 (1 standard drink = 0.6 oz pur e alcohol) Humiliation, Afraid, Rape, and Kick questionnair e Answer Date Recorded Within the last year, have y ou been afraid of your partner or ex-partner? No 07/10/2022 Within the last year, have y ou been humiliated or emotionally abused in other ways by your partner or ex-partner? No Within the last year, have y ou been kicked, hit, slapped, or otherwise physically hurt by your partner or ex-partner? No 07/10/2022 Within the last year, have y ou been raped or forced to have any kind of sexual activity by your partner or ex-partner? No 07/10/2022 AUDIT-C Answer Date Recorded Frequency of Alcohol Consumption Never 01/10/2019 Average Number of Drinks Not on file 019 Frequency of Binge Drinking Not on file 12/26 Overall Financial Resource Strain (CARDIA) Answe r Date Recorded How hard is it for you to pa y for the very basics like food, housing, medical care, and heating? Not hard at all 07/10/2022 PHQ-2 Answer Date Recorded Patient Health Questionnaire-2 Score 0 05/12/2023 Hunger Vital Sign Answer Date Recorded Within the past 12 months, y ou worried that your food would run out before you got the money to buy more. Never true 07/11/19 23 Ran Out of Food in the Last Year Not on file 07/10/2022 PRAPARE - Transportation Answer Date Re corded In the past 12 months, has l ack of transportation kept you from medical appointments or from getting medications? No 06/25 In the past 12 months, has l ack of transportation kept you from meetings, work, or from getting things needed for daily living? No 07/10/2022 Housing Stability Vital Sign Answer Rolando e Recorded In the last 12 months, was t here a time when you were not able to pay the mortgage or rent on time? No 07/10/2022 [address] of [address] Lived in the Last Year Not on f ile 07/10/2022 In the last 12 months, was t here a time when you did not have a steady place to sleep or slept in a fci (including now)? No 07/10/2022 Sex and Gender Information Value Date Recorded Sex Assigned at Male 11/04/2024 9:41 AM CDT Legal Sex Male 5:40 PM CDT Gender Identity Not on file Sexual Orientation Not on file documented as of this encounter Functional Status * Are you deaf or do you have serious difficulty hearing Answer Date of Assessment Author Status No 07/10/2022 9:16 AM Shey Doherty RN Active * Are you blind or do you have serious difficulty seeing, even when wearing glasses? Answer Date of Assessment Author Status No 07/10/2022 9:16 AM Shey Doherty RN Active * Do you have serious difficulty walking or climbing stairs? Answer Date of Assessment Author Status No 07/10/2022 9:16 AM Shey Doherty RN Active * Do you have difficulty dressing or bathing? Answer Date of Assessment Author Status No 07/10/2022 9:16 AM Shey Doherty RN Active * Because of a physical, mental, or emotional condition, do you have difficulty doing errands alone such as visiting a doctor's office or shopping? Answer Date of Assessment Author Status No 07/10/2022 9:16 AM Shey Doherty RN Active documented as of this encounter Mental Status * Because of a physical, mental, or emotional condition, do you have serious difficulty concentrating, remembering, or making decisions? Answer Entry Date Author Status No 07/10/2022 9:16 AM Shey Doherty RN Active documented in this encounter Plan of Treatment Upcoming Encounters Date Type Department Care Team (Late st Contact Info) Description 05/01/2025 10:45 AM BIOINFORMATICS SOFTWARE ENGINEER Office Visit [facility] THREE [facility], [address] [place] [address] Bharat Armas MD Three [facility]. [address] [place] [address] 05/24/2025 10:00 AM BIOINFORMATICS SOFTWARE ENGINEER Office Visit [facility] Medical Group Multispecialty Care - [facility] [address] [facility], [address] [place] [id number] Della Haro MD [address] [facility] [place] [address] documented as of this encounter Visit Diagnoses Not on filedocumented in this encounter Additional Health Concerns Infection Onset Date Last Indicated Resolved Time COVID-19 Rule Out 04/26/2024 04/26/2024 04/26/2024 7:28 PM BIOINFORMATICS SOFTWARE ENGINEER COVID-19 Confirmed 04/26/2024 04/26/2024 12:32 AM BIOINFORMATICS SOFTWARE ENGINEER Assessment Noted Time PHQ-9 Depression Total Score: 9 10/15/19 8:43 AM CDT documented as of this encounter Care Teams Director Of Kids Relationship Specialty Start Date End Date Alexandria Frausto MD [address] [place] [address] PCP - General FAMILY PRACTICE 10/15/21 01/19/24 Linda Mae MD [address] [place] [address] PCP - General FAMILY PRACTICE 02/27/24 Gutierrez Yeung MD NEUROMUSCULOSKELETAL 10/14/21 Tina Herman MD [address] [place] [id number] VASCULAR SURGERY 10/14/21 documented as of this encounter
--- OUTSIDE RECORDS SUMMARY | 2025-02-25 12:48 | XMS_ITS | Encounter Summary ---
Author Organization [facility] Address [address] [place] [address] Care Team Providers Care Pole Shaver Helper Name Role Phone Gutierrez Yeung MD Unavailable [phone] Tina Herman MD Unavailable [phone] Alexandria Frausto MD Primary Care Provider [phone] Linda Mae MD Primary Care Provider Unavaila ble Encounter Details Date Type Department Care Team (Late st Contact Info) Description 06/12/2023 MyChart Message Enc [facility] Medical Group Family Medicine [facility] [address] [place] [address] Alexandria Frausto MD [address] [place] [address] MRI request for Legs Social History Tobacco Use Types Packs/Day Years [...] place to sleep or slept in a group home (including now)? No 07/10/2022 Sex and Gender Information Value Date Recorded Sex Assigned at Male 11/04/2024 9:41 AM CDT Legal Sex Male 5:40 PM CDT Gender Identity Not on file Sexual Orientation Not on file documented as of this encounter Functional Status * Are you deaf or do you have serious difficulty hearing Answer Date of Assessment Author Status No 07/10/2022 9:16 AM CDT Shey Farias , RN Active * Are you blind or [...] st Contact Info) Description 05/01/2025 10:45 AM OIL PIT ATTENDANT Office Visit [facility] THREE [facility], [address] [place] [address] Bharat Armas MD Three [facility]. [address] [place] [address] 05/24/2025 10:00 AM OIL PIT ATTENDANT Office Visit [facility] Medical Group Multispecialty Care - [facility] [address] [facility], [address] [place] [id number] Della Haro MD [address] [place] [address] documented as of this encounter Visit Diagnoses Not on filedocumented in this encounter Additional Health Concerns Infection Onset Date Last Indicated Resolved Time COVID-19 Rule Out 04/26/2024 04/26/2024 04/26/2024 7:28 PM OIL PIT ATTENDANT COVID-19 Confirmed 04/26/2024 04/26/2024 12:32 AM OIL PIT ATTENDANT Assessment Noted Time PHQ-9 Depression Total Score: 9 10/15/19 8:43 AM CDT documented as of this encounter Care Teams Pole Shaver Helper Relationship Specialty Start Date End Date Alexandria Frausto MD [address] [place] [address] PCP - General FAMILY PRACTICE 10/15/21 01/19/24 Linda Mae MD [address] [place] [address] PCP - General FAMILY PRACTICE 02/27/24 Gutierrez Yeung MD NEUROMUSCULOSKELETAL 10/14/21 Tina Herman MD [address] [address] VASCULAR SURGERY 10/14/21 documented as of this encounter
--- OUTSIDE RECORDS SUMMARY | 2025-02-25 12:48 | XMS_ITS | Encounter Summary ---
Author Organization [facility] Address [address] [place] [address] Care Team Providers Care C.O.D. Biller Name Role Phone Gutierrez Yeung MD Unavailable Tina Herman MD Unavailable [phone] Alexandria Frausto MD Primary Care Provider [phone] Linda Mae MD Primary Care Provider Unavaila ble Encounter Details Date Type Department Care Team (Late st Contact Info) Description 08/14/2022 MyChart Message Enc [facility] Medical Group Family Medicine [facility] [address] [place] [address] Alexandria Frausto MD [address] [place] [address] VAS ARTERIAL ANKLE ARM INDEX Social History Tobacco Use Types Packs/Day Years Used Date Smoking Tobacco: Never Smokeless Tobacco: Never Alcohol Use Standard Drinks/Week Comments No 0 (1 standard drink = 0.6 oz [...] at all 07/10/2022 PHQ-2 Answer Date Recorded PHQ-2 Score - If the patient scores above 3, please move on to questions 3-9 1 10/14/2021 Hunger Vital Sign Answer Date Recorded Within [...] place to sleep or slept in a snf (including now)? No 07/10/2022 Sex and Gender Information Value Date Recorded Sex Assigned at Male 11/04/2024 9:41 AM CDT Legal Sex Male 5:40 PM CDT Gender Identity Not on file Sexual Orientation Not on file COVID-19 Exposure Response Date Recorded In the last 10 days, have yo u been in contact with someone who was confirmed or suspected to have Coronavirus/COVID-19? No / Unsure 07/25/2022 10:44 AM CDT documented as of this encounter Functional Status * Are you deaf or do you have serious difficulty hearing Answer Date of Assessment Author Status No 07/10/2022 9:16 AM CDT Shey Farias RN Active * Are you blind or do you have serious difficulty seeing, even when wearing glasses? Answer Date of Assessment Author Status No 07/10/2022 9:16 AM CDT Shey Farias RN Active * Do you have serious difficulty walking or climbing stairs? Answer Date of Assessment Author Status No 07/10/2022 9:16 AM CDT Shey Farias RN Active * Do you have difficulty dressing or bathing? Answer Date of Assessment Author Status No 07/10/2022 9:16 AM CDT Shey Farias RN Active * Because of a physical, mental, or emotional condition, do you have difficulty doing errands alone such as visiting a doctor's office or shopping? Answer Date of Assessment Author Status No 07/10/2022 9:16 AM CDT Shey Farias RN Active documented as of this encounter Mental Status * Because of a physical, mental, or emotional condition, do you have serious difficulty concentrating, remembering, or making decisions? Answer Entry Date Author Status No 07/10/2022 9:16 AM CDT Shey Farias RN Active documented in this encounter Plan of Treatment Upcoming Encounters Date Type Department Care Team (Late st Contact Info) Description 05/01/2025 10:45 AM RN HOME CARE Office Visit [facility] THREE [facility], [address] [place], [place] [id number] Bharat Armas MD Three [facility]. [address] [place] [address] 05/24/2025 10:00 AM RN HOME CARE Office Visit [facility] Medical Group Multispecialty Care - [facility] [address] [facility], [address] [place] [phone] Della Haro MD [address] [place] [address] documented as of this encounter Visit Diagnoses Not on filedocumented in this encounter Additional Health Concerns Infection Onset Date Last Indicated Resolved Time COVID-19 Rule Out 04/26/2024 04/26/2024 04/26/2024 7:28 PM RN HOME CARE COVID-19 Confirmed 04/26/2024 04/26/2024 12:32 AM RN HOME CARE Assessment Noted Time PHQ-9 Depression Total Score: 9 10/15/19 8:43 AM CDT documented as of this encounter Care Teams C.O.D. Biller Relationship Specialty Start Date End Date Alexandria Frausto MD [address] [place] [address] PCP - General FAMILY PRACTICE 10/15/21 01/19/24 Linda Mae MD [address] [place] [address] PCP - General FAMILY PRACTICE 02/27/24 Gutierrez Yeung MD NEUROMUSCULOSKELETAL 10/14/21 Tina Herman MD [address] [facility] [address] [place] [address] VASCULAR SURGERY 10/14/21 documented as of this encounter
--- OUTSIDE RECORDS SUMMARY | 2025-02-25 12:48 | XMS_ITS | Encounter Summary ---
Author Organization [facility] Address [address] [place] [address] Care Team Providers Care Marine Surveyor Name Role Phone Gutierrez Yeung MD Unavailable [phone] Tina Herman MD Unavailable [phone] Alexandria Frausto MD Primary Care Provider [phone] Linda Mae MD Primary Care Provider Unavaila ble Encounter Details Date Type Department Care Team (Late st Contact Info) Description 10/22/2022 MyChart Message Enc [facility] Medical Group - [facility] [address] [place] [address] [facility] Provider Air Quality Message Social History Tobacco Use Types Packs/Day Years [...] place to sleep or slept in a halfway (including now)? No 07/10/2022 Sex and Gender [...] Assessment Author Status No 07/10/2022 9:16 AM CDShey Stern RN Active * Do you have serious [...] st Contact Info) Description 05/01/2025 10:45 AM MANAGER OF CREATIVE SERVICES Office Visit [facility] THREE [facility], [address] [place] [address] Bharat Armas MD Three [facility]. [address] [place] [address] 05/24/2025 10:00 AM MANAGER OF CREATIVE SERVICES Office Visit [facility] Medical Group Multispecialty Care - [facility] [address] [facility], [address] [place] [address] Della Haro MD [address] [place] [address] documented as of this encounter Visit Diagnoses Not on filedocumented in this encounter Additional Health Concerns Infection Onset Date Last Indicated Resolved Time COVID-19 Rule Out 04/26/2024 04/26/2024 04/26/2024 7:28 PM MANAGER OF CREATIVE SERVICES COVID-19 Confirmed 04/26/2024 04/26/2024 12:32 AM MANAGER OF CREATIVE SERVICES Assessment Noted Time PHQ-9 Depression Total Score: 9 10/15/19 22 8:43 AM CDT documented as of this encounter Care Teams Marine Surveyor Relationship Specialty Start Date End Date Alexandria Frausto MD [address] [place] [address] PCP - General FAMILY PRACTICE 10/15/21 01/19/24 Linda Mae MD [address] [place] [address] PCP - General FAMILY PRACTICE 02/27/24 Gutierrez Yeung MD NEUROMUSCULOSKELETAL 10/14/21 Tina Herman MD [address] [place] [id number] VASCULAR SURGERY 10/14/21 documented as of this encounter
--- OUTSIDE RECORDS SUMMARY | 2025-02-25 12:48 | XMS_ITS | Clinical Summary ---
Author Organization [facility] Address [address] [place] [address] Care Team Providers Care Apartment Maintenance Name Role Phone Gutierrez Yeung MD Unavailable [phone] Tina Herman MD Unavailable [phone] Linda Mae MD Primary Care Provider Unavaila ble Allergies Active Allergy Reactions Criticality Noted Date Comments Fluticasone Other (see comment) 05/05/2024 Fluticasone-Salmeterol Shortness of Breath High 02/25 Gabapentin Shortness of Breath High 02/05/2023 Primidone Seizure 12/16/2017 Salmeterol Other (see comment) 05/05/2024 Salmeterol Xinafoate Unknown 05/05/2024 Oxcarbazepine Seizure 12/16/2017 Medications SPIRIVA HANDIHALER [address] 1 capsule (18 mcg total) into inhaler and inhale daily. 3 Active albuterol sulfate HFA 108 (90 Base) MCG/ACT inhaler INHALE 1 OR 2 PUFFS BY MOUTH EVERY 4 HOURS NEEDED FOR SHORTNESS OF BREATH Active ipratropium-albute rol (DUONEB) 0.5-2.5 (3) MG/3ML Solution Active aspirin EC 81 MG tabletIndications: Claudication in peripheral vascular disease Take 1 tablet (81 mg total) by mouth daily. Patient must be seen for further refills 90 tablet 1 3 Active rosuvastatin (CRESTOR) 5 MG tabletIndications: Mixed hyperlipidemia Take 1 tablet (5 mg total) by mouth daily. 90 tablet 1 3 Active levETIRAcetam (KEPPRA) 500 MG tabletIndications: Nonintractable epilepsy without status epilepticus, unspecified epilepsy type (CMS/HCC HHS/HCC) Take 1 tablet (500 mg total) by mouth 2 (two) times daily. 180 tablet 3 5 05/24/19 26 Active nortriptyline (PAMELOR) 10 MG capsuleIndications :Basilar migraine,Hemiplegi c migraine without status migrainosus, not intractable Take 2 capsules (20 mg total) by mouth nightly at bedtime. 180 capsule 3 5 05/24/19 26 Active rimegepant (NURTEC) 75 MG disintegrating tabletIndications: Hemiplegic migraine without status migrainosus, not intractable Take 1 tablet (75 mg total) by mouth daily as needed. Max of 1 tablet (75 mg) in 24 hours. 8 tablet 5 5 Active DULoxetine (CYMBALTA) 60 MG capsule Take 1 capsule (60 mg total) by mouth daily. 4 Active fluticasone propionate (FLONASE) 50 MCG/ACT nasal spray SPRAY 2 SPRAYS INTO EACH NOSTRIL ONCE DAILY 4 Active ibuprofen (MOTRIN) 600 MG tablet Take 1 tablet (600 mg total) by mouth every 6 (six) hours as needed. 4 Active metFORMIN (GLUCOPHAGE) 1000 MG tablet Take 1 tablet (1,000 mg total) by mouth 2 (two) times daily with meals. Active sildenafil (VIAGRA) 25 MG tablet Take 1 tablet (25 mg total) by mouth daily as needed for Erectile Dysfunction. Active ondansetron (ZOFRAN) 4 MG tabletIndications: Near syncope Take 1 tablet (4 mg total) by mouth every 8 (eight) hours as needed for Nausea. 12 tablet 5 Active Active Problems Problem Noted Date Diagnosed Date Screening cholesterol level 09/15/2024 Assessment & Plan (09/15/2024 10:25 AM CDT): No recent lipid panel on file. Will repeat now. Continue rosuvastatin. Syncope, unspecified syncope type 08/30/2024 Assessment & Plan (09/29/2024 7:41 PM CDT): Patient had a recent ER visit for near syncope. States he was very nauseous at that time and was given zofran with complete relief of symptoms. Reports another instance where he went unconscious for 15-20 seconds while sitting on his couch, then came back to. Echocardiogram shows LVEF 50 to 55% and no significant valvular abnormalities. Reviewed 14 day event monitor with scholastic aptitude test grader who did not see any arrhythmia concerns to explain syncope. Discussed possibility to implant a loop recorder to further assess for arrhythmia burden. Recommended follow up with neurology to discuss episodes of near syncope given seizure history. Assessment & Plan (09/15/2024 10:23 AM CDT): Patient denies any recent syncopal events since his last office visit. Echocardiogram shows LVEF 50 to 55% and no significant valvular abnormalities. 14-day event monitor with results pending at this time. Assessment & Plan (08/30/2024 5:30 PM CDT): Assessment: Patient reports two recent episodes of syncope in the past two weeks. The first episode occurred while outside with his dog, and the second while sitting on the couch. Both episodes were brief, lasting only a couple of seconds, and were not preceded by an aura. Patient has a history of seizures, with the last reported seizure occurring approximately one year ago. The etiology of these syncopal episodes is unclear and requires further investigation to rule out cardiac causes. Plan: - Order echocardiogram to evaluate for valve problems or other cardiac abnormalities - Prescribe 14-day heart monitor to assess for potential rhythm disturbances - Follow-up appointment in 4-6 weeks to review test results Pain in both feet 08/08/2024 Plantar fasciitis 05/05/2024 Chronic pain of left ankle 11/15/2023 PAD (peripheral artery disease) 07/26/2022 Assessment & Plan (09/29/2024 7:42 PM CDT): Patient has a history of peripheral arterial disease. Denies any claudication symptoms at this time. Continue risk factor modification with aspirin and rosuvastatin. Repeat lipid panel ordered. Assessment & Plan (09/15/2024 10:24 AM CDT): Patient has a history of peripheral arterial disease. Denies any claudication symptoms at this time. Continue risk factor modification with aspirin and rosuvastatin. Will repeat lipid panel at this time. Assessment & Plan (08/30/2024 5:31 PM CDT): Assessment: Patient reports a history of PAD diagnosed and treated at [facility]. He was previously treated with an unspecified blood thinner, which was effective. Currently, the patient is not on any blood thinners for this condition. Recent testing has reportedly come back normal, suggesting that active PAD may no longer be present. Plan: - Review previous PAD-related medical records and test results - Assess current cardiovascular risk factors - Educate patient on importance of continued cardiovascular health maintenance SIRS (systemic inflammatory response syndrome) 0 07/10/2022 Chronic back pain 03/11/2021 Chronic back pain 03/10/2021 Mild intermittent asthma 07/18/2020 Exposure to asbestos 02/23/2020 Contact with and (suspected) exposure to asbesto s 02/23/2020 Tinnitus of right ear 02/11/2019 Diabetes mellitus 05/11/2018 Environmental allergies 05/11/2018 Hemiplegia 05/11/2018 Asthma 05/11/2018 Epilepsy 05/11/2018 Environmental allergies 05/11/2018 Asthma 05/10/2018 Epilepsy 05/10/2018 Migraine 05/10/2018 Seizure disorder 05/10/2018 Renal cyst 01/08/2018 Chronic headaches 09/13/2017 Tonic-clonic seizure disorder 08/06/2017 Migraine with aura and witho ut status migrainosus, not intractable 07/15/2017 Chronic migraine 07/15/2017 Vasectomy evaluation 06/08/2017 Low vitamin D level 05/25/2017 Carpal tunnel syndrome 01/12/2017 Chronic back pain 01/05/2017 Tendinitis of wrist 11/25/2016 Multiple nevi 09/14/2015 Nevus of hand, left 09/14/2015 Contact with and (suspected) exposure to mold (t oxic) 07/09/2014 Overview (08/08/2024): Exposure to Toxic Mold at Work 07/09/2014 to )11/11/2017 Seizure 06/27/2013 Seizures 06/27/2013 Allergic rhinitis 05/02/2012 Asthma 04/06/2012 Resolved Problems Problem Noted Date Diagnosed Date Resolved Date Caffeine use 08/23/2014 01/06/2020 Encounters Date Type Department Care Team Description 02/10/2025 Scan HEALTH INFO SRVCS Scanned, [facility] (SCAN) from Last 3 Months Immunizations Immunization Administration Dates Next Due Fluzone 6 Months+ Quad (0.5 mL Prefilled Syringe) 02/05/2023,03/03/2022 Fluzone Intradermal Quad (IIV4) 01/19/2021 Influenza (Generic) 01/18/2021,04/10/2017,2013 Influenza Adult (Generic) 01/19/2021,09/2019,04/06/2019,2018,05/11/2018,04/10/2017 PFIZER COVID-19 (PARMAR CAP), MRNA, LNP-S, PF, 30 MCG/0.3 ML ANA LUISA-SUCROSE, IM 07/25/2021 PFIZER COVID-19 (ORIGINAL FORMULATION, PURPLE CAP) mRNA, LNP-S, PF, 30 MCG/0.3 ML DOSE 02/10/2021,08/11/2020,07/21/2020 Pneumococcal (Prevnar 20) 07/06/2023 Tdap (Generic) 10/25/2015 Family History Medical History Relation Comments Cancer Brother Cancer Father Prostate Diabetes Father Early Hearing Loss Father Heart Attack Father Heart Disease Father Hypertension Father Stroke Father Vision loss Father Heart Attack Maternal Grandmother Arthritis Mother Asthma Mother COPD Mother Emphysema Mother Heart Attack Mother Kidney Disease Mother Stroke Mother Heart Attack Paternal Grandfather Heart Attack Paternal Grandmother Retardation/Learning Difficulties Son Relation Status Comments Brother Father Maternal Grandmother Mother Paternal Grandfather Paternal Grandmother Son Alive Social History Tobacco Use Types Packs/Day Years Used Date Smoking Tobacco: Never Smokeless Tobacco: Never Tobacco Cessation:Counseling Given: Not Answered Comments:NOT A SMOKER Alcohol Use Standard Drinks/Week Comments Never 0 [...] Date Recorded Patient Health Questionnaire-2 Score 0 05/24/2024 Hunger Vital Sign Answer Date Recorded Within [...] place to sleep or slept in a half-way (including now)? No 07/10/2022 Sex and Gender Information Value Date Recorded Sex Assigned at Male 11/04/2024 9:41 AM CDT Legal Sex Male 5:40 PM CDT Gender Identity Not on file Sexual Orientation Not on file Last Filed Vital Signs Vital Sign Reading Time Taken Comments Blood Pressure 98/66 11/24/2024 11:47 AM CDT Pulse 82 11/24/2024 11:47 AM CDT Temperature 36.6 C (97.8 F) 11/24/2024 11:47 AM CDT Respiratory Rate 16 11/24/2024 11:47 AM CDT Oxygen Saturation 100% 11/24/2024 11:47 AM CDT Inhaled Oxygen Concentration - - Weight 69.9 kg (154 lb) 11/24/2024 11:47 AM CDT Height 172.7 cm (5' 8) 11/24/2024 11:47 AM CDT Body Mass Index 23.42 11/24/2024 11:47 AM CDT Plan of Treatment Upcoming Encounters Date Type Department Care Team (Late st Contact Info) Description 05/01/2025 10:45 AM BRUSHER WARP Office Visit [facility], [address] [place] [address] Bharat Armas MD [facility]. [address] [place] [address] 05/24/2025 10:00 AM BRUSHER WARP Office Visit [facility] Mult[facility]pecialty Care - [facility] [address] [facility], [address] [place] [id number] Della Haro MD [address] [place] [address] Health Maintenance Due Date Last Done Comments ASCVD Statin 1975 Kidney Health Evaluation 1973 Diabetes: Retinopathy Eye Exam 12/07/1991 Hepatitis B Vaccines (1 of 3 - 19+ 3-dose series) 1992 Annual Physical 02/06/2024 02/05/2023, 10/14/2021 Zoster Vaccines (2 of 2) 10/10/2024 08/15/2024 Hemoglobin A1C 10/21/2024 04/22/2024, 02/25, 02/05/2023, Additional history exists COVID-19 Vaccine ( season) 2024 08/15/2024, 07/25/2021, 02/10/2021, Additional history exists Influenza Adult (#1) 2025 02/05/2023, 03/03/2022, 01/19/2021, Additional history exists DTaP, Tdap and Td Vaccines (2 - Td or Tdap) 10/24/2025 10/25/2015 Lipid Panel 11/04/2025 11/04/2024, 02/25, 01/17/2022, Additional history exists Colorectal Cancer Screening Colonoscopy (10 Years) 08/13/2026 Hepatitis C Completed 10/14/2021 Pneumococcal Vaccine: 50+ Years Completed 07/06/2023 PHQ-2 (Physician [place]) Completed 05/24/2024 Hepatitis A Vaccines Aged Out No long er eligible based on patient's age to complete this topic Meningococcal B Vaccine Aged Out No l onger eligible based on patient's age to complete this topic Meningococcal Vaccine Aged Out No danyell rashaad eligible based on patient's age to complete this topic RSV Immunizations Under 20 Months Aged Out No longer eligible based on patient's age to complete this topic Procedures Procedure Name Priority Date/Time Associated Diagnosis Comments OUTSIDE LAB (SCAN ORDER) 02/10/2025 OUTSIDE LAB (SCAN ORDER) 02/10/2025 OUTSIDE LAB (SCAN ORDER) 02/10/2025 LIPID PANEL Routine 11/04/2024 9:48 AM CDT Screening cholesterol level HEMOGLOBIN, GLYCOSYLATED Routine 04/22/2024 HEPATITIS C ANTIBODY Routine 10/14/2021 9:18 AM CDT Encounter for hepatitis C screening test for low risk patient from Last 3 Months or Most Recently Relevant to Health Maintenance Results * OUTSIDE LAB (SCAN ORDER) (02/10/2025) Only the most recent of3 resultswithin the time period is included. 02/10/2025 [facility] Scanned SCANNING Final Resu lt * LIPID PANEL (11/04/2024 9:48 AM CDT) CHOLESTEROL 129 <200 MG/DL 11/04/2024 10:46 AM CDT [facility] TRIGLYCERIDES 52 <150 MG/DL 11/04/2024 10:46 AM CDT [facility] HDL 69 >40.0 MG/DL 11/04/2024 10:46 AM CDT [facility] LDL (CALCULATED) 50 <100 MG/DL 11/05/19 10:46 AM CDT [facility] Comment:CALCULATED USING THE FRIEDEWALD EQUATION NON HDL CHOLESTEROL 60 <130 MG/DL 11/04 10:46 AM CDT [facility] CHOL/HDL RATIO 1.9 0.0 - 4.5 11/04/2024 10:46 AM CDT [facility] VLDL CALCULATION 10 5 - 55 MG/DL 11/04/2024 10:46 AM CDT [facility] LIPID INTERPRETATION 11/04/2024 10:46 AM CDT [facility] Comment: NIH CONCENSUS REPORT RECOMMENDATIONS: ADULT CHILD LOW RISK: CHOLESTEROL <200 <170 TRIGLYCERIDE <150 --- HDL >=60 --- LDL <100 <110 BORDERLINE: CHOLESTEROL 200-239 170-199 TRIGLYCERIDE 150-199 --- HDL 40-59 --- LDL 100-159 110-129 HIGH RISK: CHOLESTEROL >=240 >=200 TRIGLYCERIDE >=200 --- HDL <40 --- LDL >=160 >=130 11/04/2024 9:48 AM CDT [facility] Final Result [facility] [address] [place] [address], * HEMOGLOBIN, GLYCOSYLATED (04/22/2024) HGB A1C 6.0 % 04/22/2024 [facility] LABORATORY Final Res ult * HEPATITIS C ANTIBODY (10/14/2021 9:18 AM CDT) HEPATITIS C AB NON-REACTI VE NON-REACT NETTA 10/14/2021 8:46 PM CDT [facility] Comment: ANTIBODIES TO HCV NOT DETECTED. DOES NOT EXCLUDE THE POSSIBILITY OF EXPOSURE TO HCV. 10/14/2021 9:18 AM CDT Alexandria Frausto MD LABORATORY Final Result [facility] [address] [place] [address], [id number] from Last 3 Months or Most Recently Relevant to Health Maintenance Insurance MEDICAID [facility] MEDICARE Advance Directives * Full Code (Latest Code Status on File) Date Activated Date Inactivated Comments 07/10/2022 2:28 AM 07/10/2022 1:14 PM Care Teams Apartment Maintenance Relationship Specialty Start Date End Date Linda Mae MD [address] [place] [address] PCP - General FAMILY PRACTICE 02/27/24 Gutierrez Yeung MD NEUROMUSCULOSKELETAL 10/14/21 Tina Herman MD [address] [place] [address] VASCULAR SURGERY 10/14/21
--- OUTSIDE RECORDS SUMMARY | 2025-02-25 12:48 | XMS_ITS | Encounter Summary ---
Author Organization [facility] Address [address] [place] [address] Care Team Providers Care Boat Repairer Name Role Phone Gutierrez Yeung MD Unavailable [phone] Tina Herman MD Unavailable [phone] Alexandria Frausto MD Primary Care Provider [phone] Linda Mae MD Primary Care Provider Unavaila ble Encounter Details Date Type Department Care Team (Late st Contact Info) Description 07/14/2022 MyCZyngeniat Message Enc [facility] Family Medicine [facility] [address] [place] [address] Alexandria Frausto MD [address] [place] [address] Component Your Value Standard Range Flag PATHOLOGIST COMMENT: PATHOLOGIST REVIEW ADDED TO REPORT [id number] MODERATE MACROCYTIC ANEMIA. INCREASED MCV. CAN BE SECONDARY TO VITAMIN B12 DEFICIENCY, FOLATE DEFICIENCY, ALCOHOL ABUSE, LIVER DISEASE, MYELODYSPL Social History Tobacco Use Types Packs/Day Years [...] Recorded In the last 10 days, have sophy u been in contact with someone who was confirmed or suspected to have Coronavirus/COVID-19? No / Unsure 07/16/2022 7:50 PM CDT documented as of this encounter Functional [...] Author Status No 07/10/2022 9:16 AM CDT hSey Farias RN Active * Because of a physical, mental, or emotional condition, do you have difficulty doing errands alone such as visiting a doctor's office or shopping? Answer Date of Assessment Author Status No 07/10/2022 9:16 AM CDT Shey Farias RN Active * Calculated C-SSRS Risk Score (Lifetime/Recent) Answer Date of Assessment Author Status No Risk Indicated 07/16/2022 7:56 PM CDT Sloane Barry RN Active * Stanley Suicide Severity Rating Scale (Screener/Recent Self-Report) Question Answer Date of Assessment Author Status 1. Wish to be (Past 1 Month) No 07/16/2022 7:56 PM CDT Eliud Alvarez RN Active 2. Non-Specific Active Suicidal Thoughts (Past 1 Month) No 07/16/2022 7:56 PM CDT Eliud Alvarez RN Active 6. Suicidal Behavior (Lifetime) No 07/16/2022 7:56 PM CDT Eliud Alvarez RN Active documented as of this encounter [...] st Contact Info) Description 05/01/2025 10:45 AM DIGITAL IMAGING SPECIALIST Office Visit [facility] [address] [facility] [address], [address] [place] [address] Bharat Armas MD [address] [place] [address] 05/24/2025 10:00 AM DIGITAL IMAGING SPECIALIST Office Visit [facility] [address] [facility], [address] [place] [address] Della Haro MD [address] [place] [address] documented as of this encounter Visit Diagnoses Not on filedocumented in this encounter Additional Health Concerns Infection Onset Date Last Indicated Resolved Time COVID-19 Rule Out 04/26/2024 04/26/2024 04/26/2024 7:28 PM DIGITAL IMAGING SPECIALIST COVID-19 Confirmed 04/26/2024 04/26/2024 12:32 AM DIGITAL IMAGING SPECIALIST Assessment Noted Time PHQ-9 Depression Total Score: 9 10/15/19 22 8:43 AM CDT documented as of this encounter Care Teams Boat Repairer Relationship Specialty Start Date End Date Aleaxndria Frausto MD [address] [place] [address] PCP - General FAMILY PRACTICE 10/15/21 01/19/24 Linda Mae MD [address] [place] [address] PCP - General FAMILY PRACTICE 02/27/24 Gutierrez Yeung MD NEUROMUSCULOSKELETAL 10/14/21 Tina Herman MD [address] [place] [id number] VASCULAR SURGERY 10/14/21 documented as of this encounter
--- OUTSIDE RECORDS SUMMARY | 2025-02-25 12:48 | XMS_ITS | Encounter Summary ---
Author Organization [facility] Address [address] [place] [address] Care Team Providers Care Railroad Yard Worker Name Role Phone Gutierrez Yeung MD Unavailable [phone] Tina Herman MD Unavailable [phone] Alexandria Frausto MD Primary Care Provider [phone] Linda Mae MD Primary Care Provider Unavaila ble Encounter Details Date Type Department Care Team (Latest Contact Info) Description 10/12/2022 MyChart Message Enc [facility] Medical Group Multispecialty Care - [address], [address] [place] [address] Darwin Canseco MD [address] [place] [address] contact with and suspected exposure to mold toxic from 07/09/2014 to 11/11/2017 Social History Tobacco Use Types Packs/Day Years [...] place to sleep or slept in a residential (including now)? No 07/10/2022 Sex and Gender [...] 07/10/2022 9:16 AM CDT Shey Farias , ROMIE Active * Are you blind or do you have serious difficulty seeing, even when wearing glasses? Answer Date of Assessment Author Status No 07/10/2022 9:16 AM CDT Shey Farias , RN Active * Do you have serious [...] Farias RN Active documented in this encounter Progress Notes * Darwin Canseco MD - 10/13/2022 8:04 AM CDT OK, I will CC this to your PCP. documented in this encounter Plan of Treatment Upcoming Encounters Date Type Department Care Team (Late st Contact Info) Description 05/01/2025 10:45 AM AUTOMOBILE UPHOLSTERY TRIM INSTALLER Office Visit [facility] [address] [facility] [address] [place] [address] Bharat Armas MD Three [facility]. [address] [place] [address] 05/24/2025 10:00 AM AUTOMOBILE UPHOLSTERY TRIM INSTALLER Office Visit [facility] Group Multispecialty Care - [facility] [address] [facility], [address] [place] [address] Della Haro MD [address] [place] [address] documented as of this encounter Visit Diagnoses Not on filedocumented in this encounter Additional Health Concerns Infection Onset Date Last Indicated Resolved Time COVID-19 Rule Out 04/26/2024 04/26/2024 04/26/2024 7:28 PM AUTOMOBILE UPHOLSTERY TRIM INSTALLER COVID-19 Confirmed 04/26/2024 04/26/2024 12:32 AM AUTOMOBILE UPHOLSTERY TRIM INSTALLER Assessment Noted Time PHQ-9 Depression Total Score: 9 10/15/19 8:43 AM CDT documented as of this encounter Care Teams Railroad Yard Worker Relationship Specialty Start Date End Date Alexandria Frausto MD [address] [place] [address] PCP - General FAMILY PRACTICE 10/15/21 01/19/24 Linda Mae MD [address] [place] [address] PCP - General FAMILY PRACTICE 02/27/24 Gutierrez Yeung MD NEUROMUSCULOSKELETAL 10/14/21 Tina Herman MD [address] [facility] [address] [place] [id number] VASCULAR SURGERY 10/14/21 documented as of this encounter
--- OUTSIDE RECORDS SUMMARY | 2025-02-25 12:48 | XMS_ITS | Clinical Summary ---
Author Organization [facility] Care Team Providers Care Meat Molder Name Role Phone Unavailable Primary Care Provider Unavailabl e Social History Tobacco Use Types Packs/Day Years Used Date Smoking Tobacco: Never Assessed Sex and Gender Information Value Date Recorded Sex Assigned at Not on file Legal Sex Male 12:17 PM WILDLIFE BIOLOGY TECHNICIAN Gender Identity Not on file Sexual Orientation Not on file Plan of Treatment Health Maintenance Due Date Last Done Comments Hepatitis C Virus (HCV) Screening 1975 Hepatitis B Immunization (1 of 3 - 19+ 3-dose series) 1992 Cologuard 2018 Colonoscopy 2018 Colorectal Cancer Screening 2018 Immunochemical Fecal Occult Blood 2018 Pneumococcal Immunization (50+ years) (1 of 1 - PCV) 12/07/2023 Zoster Immunization (1 of 2) 12/07/2023 Influenza Immunization (#1) 2024 09/0 09/2019, 04/06/2019, 05/11/2018, Additional history exists SARS-COV-2 Immunization ( - 2024- season) 2024 08/11/2020, 07/21/2020 Respiratory Syncytial Virus (RSV) Immunization (Adult) (1 - 1-dose 75+ series) 2048 DTaP/Tdap/Td Immunization Discontinued 10/25/2015 TdaP Immunization Completed 10/25/2015 Human Papillomavirus (HPV) Immunization Aged Out No longer eligible based on patient's age to complete this topic Meningococcal Immunization (ACWY) Aged Out No longer eligible based on patient's age to complete this topic Rotavirus Immunization Aged Out No lo nger eligible based on patient's age to complete this topic
--- OUTSIDE RECORDS SUMMARY | 2025-02-25 12:48 | XMS_ITS | Encounter Summary ---
Author Organization [facility] Address [address] [place] [address] Care Team Providers Care Stiff Leg Operator Name Role Phone Gutierrez Yeung MD Unavailable [phone] Tina Herman MD Unavailable [phone] Alexandria Frausto MD Primary Care Provider [phone] Linda Mae MD Primary Care Provider Unavaila ble Encounter Details Date Type Department Care Team (Late st Contact Info) Description 12/03/2021 Prep for Procedure [facility] [place] [address] [id number] Viridiana Trivedi NP [address] [facility] [address] [place] [phone] -[phone] (Work) Social History Tobacco Use Types Packs/Day Years Used Date Smoking Tobacco: Never Smokeless Tobacco: Never Alcohol Use Standard Drinks/Week Comments No 0 (1 standard drink = 0.6 oz pur e alcohol) AUDIT-C Answer Date Recorded Frequency of Alcohol Consumption Never 01/10/2019 Average Number of Drinks Not on file 019 Frequency of Binge Drinking Not on file 12/26 PHQ-2 Answer Date Recorded PHQ-2 Score - If the patient scores above 3, please move on to questions 3-9 1 10/14/2021 Sex and Gender Information Value Date Recorded Sex Assigned at Male 11/04/2024 9:41 AM CDT Legal Sex Male 5:40 PM CDT Gender Identity Not on file Sexual Orientation Not on file COVID-19 Exposure Response Date Recorded In the last 10 days, have yo u been in contact with someone who was confirmed or suspected to have Coronavirus/COVID-19? No / Unsure 2021 10:16 AM CDT documented as of this encounter Functional Status * Calculated C-SSRS Risk Score (Lifetime/Recent) Answer Date of Assessment Author Status No Risk Indicated 12/03/2021 10:13 AM CDT Jessica Motley RN Active * [place] Suicide Severity Rating Scale (Screener/Recent Self-Report) Question Answer Date of Assessment Author Status 1. Wish to be (Past 1 Month) No 12/03/2021 10:13 AM CDT Jessica Motley RN Active 2. Non-Specific Active Suicidal Thoughts (Past 1 Month) No 12/03/2021 10:13 AM Jessica Xiao RN Active 6. Suicidal Behavior (Lifetime) No 12/03/2021 10:13 AM CDT Jessica Motley RN Active documented as of this encounter Plan of Treatment Upcoming Encounters Date Type Department Care Team (Late st Contact Info) Description 05/01/2025 10:45 AM MIXER TENDER Office Visit [facility] THREE [facility], [address] [place] [address] Bharat Armas MD Three [facility]. [address] [place] [address] 05/24/2025 10:00 AM MIXER TENDER Office Visit [facility] Multispecialty Care - [facility] 3 [facility], [address] [place] [phone] Della Haro MD [address] [place] [address] documented as of this encounter Visit Diagnoses Not on filedocumented in this encounter Additional Health Concerns Infection Onset Date Last Indicated Resolved Time COVID-19 Rule Out 04/26/2024 04/26/2024 04/26/2024 7:28 PM MIXER TENDER COVID-19 Confirmed 04/26/2024 04/26/2024 12:32 AM MIXER TENDER Assessment Noted Time PHQ-9 Depression Total Score: 9 10/15/19 8:43 AM CDT documented as of this encounter Care Teams Stiff Leg Operator Relationship Specialty Start Date End Date Alexandria Frausto MD [address] [place] [address] PCP - General FAMILY PRACTICE 10/15/21 01/19/24 Linda Mae MD [address] [place] [address] PCP - General FAMILY PRACTICE 02/27/24 Gutierrez Yeung MD NEUROMUSCULOSKELETAL 10/14/21 Tina Herman MD [address] [phone] VASCULAR SURGERY 10/14/21 documented as of this encounter
--- OUTSIDE RECORDS SUMMARY | 2025-02-25 12:48 | XMS_ITS | Encounter Summary ---
Author Organization [facility] Address [address] [place] [address] Care Team Providers Care Nurse Practitioner Per Diem Name Role Phone Gutierrez Yeung MD Unavailable [phone] Tina Herman MD Unavailable [phone] Linda Mae MD Primary Care Provider Unavaila ble Encounter Details Date Type Department Care Team (Late st Contact Info) Description 08/18/2024 Uploadcare Message Enc [facility], [facility] [address] [place] [address] Bharat Armas MD [facility]. [facility] [address] [place] [address] Service Dog Letter for [facility] Social History Tobacco Use Types Packs/Day Years Used Date Smoking Tobacco: Never Smokeless Tobacco: Never Comments:NOT A SMOKER Alcohol Use Standard Drinks/Week [...] place to sleep or slept in a longterm (including now)? No 07/10/2022 Sex and Gender [...] documented in this encounter Progress Notes * SHDAY Fitzgerald - 08/24/2024 1:55 PM CDT Would recommend requesting letter from primary care provider documented in this encounter Plan of Treatment Upcoming Encounters Date Type Department Care Team (Late st Contact Info) Description 05/01/2025 10:45 AM HOME ECONOMICS EXTENSION WORKER Office Visit [facility] THREE [facility], [address] [place] [address] Bharat Armas MD Three [facility]. [address] [place] [address] 05/24/2025 10:00 AM HOME ECONOMICS EXTENSION WORKER Office Visit [facility] Medical Group Multispecialty Care - [facility] [address] [facility], [address] [place] [phone] Della Haro MD [address] [place] [address] documented as of this encounter Visit Diagnoses Not on filedocumented in this encounter Additional Health Concerns Assessment Noted Time PHQ-9 Depression Total Score: 9 10/15/19 22 8:43 AM CDT documented as of this encounter Care Teams Nurse Practitioner Per Diem Relationship Specialty Start Date End Date Linda Mae MD [address] [facility] [address] [place] [address] PCP - General FAMILY PRACTICE 02/27/24 Gutierrez Yeung MD NEUROMUSCULOSKELETAL 10/14/21 Tina Herman MD [address] [facility] [address] [place] [phone] VASCULAR SURGERY 10/14/21 documented as of this encounter
--- OUTSIDE RECORDS SUMMARY | 2025-02-25 12:48 | XMS_ITS | Encounter Summary ---
Author Organization [facility] Address [address] [place] [address] Care Team Providers Care Mountain Or Glacier Guide Name Role Phone Gutierrez Yeung MD Unavailable [phone] Tina Herman MD Unavailable [phone] Linda Mae MD Primary Care Provider Unavaila ble Encounter Details Date Type Department Care Team (Late st Contact Info) Description 10/06/2024 Trekea Message Enc [facility] Medical Group Multispecialty Care - [address], [address] [place] [address] [place] Provider TMJ INJECTION Social History Tobacco Use Types Packs/Day Years [...] place to sleep or slept in a mcfp (including now)? No 07/10/2022 Sex and Gender [...] st Contact Info) Description 05/01/2025 10:45 AM METAL FURNITURE ASSEMBLY SUPERVISOR Office Visit [facility] THREE [facility], [address] [place] [address] Bharat Armas MD Three [facility]. [facility] [address] [place] [address] 05/24/2025 10:00 AM METAL FURNITURE ASSEMBLY SUPERVISOR Office Visit [facility] Medical Group Multispecialty Care - [facility] 3 [facility], [address] [place] [phone] Della Haro MD [address] [place] [address] documented as of this encounter Visit Diagnoses Not on filedocumented in this encounter Additional Health Concerns Assessment Noted Time PHQ-9 Depression Total Score: 9 10/14/ 22 8:43 AM CDT documented as of this encounter Care Teams Mountain [place] Glacier Guide Relationship Specialty Start Date End Date Linda Mae MD [address] OF VASCULAR SURGERY [address] PCP - General FAMILY PRACTICE 02/27/24 Gutierrez Yeung MD NEUROMUSCULOSKELETAL 10/14/21 Tina Herman MD [address] DIV OF VASCULAR SURGERY [phone] VASCULAR SURGERY 10/14/21 documented as of this encounter
--- OUTSIDE RECORDS SUMMARY | 2025-02-25 12:48 | XMS_ITS | Clinical Summary ---
Author Organization [facility] Address [address] [place] [address] Care Team Providers Care Roof Slater Name Role Phone Linda Mae MD Primary Care Provider [phone] Allergies Active Allergy Reactions Criticality Noted Date Comments Fluticasone Propion-Salmeterol Cough,Wheezing Reaction: COUGH, WHEEZE, Gabapentin Other (See comments) Low 04/30/2023 Can't take d/t other medications Oxcarbazepine Other (See comments) Reaction: DIARRHEA Medications TiZANidine (ZANAFLEX) 6 mg capsule Take 1 capsule (6 mg total) by mouth 3 (three) times a day as needed for muscle spasms 30 capsule 2 Active ibuprofen (ADVIL,MOTRIN) 600 mg tablet Take 1 tablet (600 mg total) by mouth every 6 (six) hours as needed for pain 20 tablet 2 Active famotidine (PEPCID) 20 mg tabletIndicatio ns:prophylaxis for NSAID use Take 1 tablet (20 mg total) by mouth 2 (two) times a day for 10 days 20 tablet 2 Active albuterol HFA (PROVENTIL HFA,VENTOLIN HFA,PROAIR HFA) 90 mcg/actuation inhaler INHALE 1 OR 2 PUFFS BY MOUTH EVERY 4 HOURS NEEDED FOR SHORTNESS OF BREATH Active aspirin 81 mg enteric coated tablet Take 1 tablet (81 mg total) by mouth daily Active montelukast (SINGULAIR) 10 mg tablet Take 1 tablet (10 mg total) by mouth nightly at bedtime Active nortriptyline (PAMELOR) 10 mg capsule TAKE 2 CAPSULES BY MOUTH NIGHTLY AT BEDTIME. Active Nurtec ODT tablet,disinteg rating TAKE 1 TABLET (75 MG TOTAL) BY MOUTH DAILY NEEDED FOR MIGRAINE 3 Active rosuvastatin (CRESTOR) 5 mg tablet Take 1 tablet (5 mg total) by mouth daily 2 Active Spiriva with HandiHaler 18 mcg per inhalation capsule INHALE 1 CAPSULE VIA HANDIHALER ONCE DAILY AT THE SAME TIME EVERY DAY Active Active Problems Problem Noted Date Diagnosed Date Chronic pain of left ankle 11/15/2023 Epileptic seizure 05/11/2018 Diabetes mellitus 05/10/2018 Epilepsy 05/10/2018 Asthma 04/06/2012 Surgical History Surgery Date Site/Laterality Comments SINUS SURGERY FOOT SURGERY Left Medical History Medical History Date Comments Asthma Lung nodules Type 2 diabetes mellitus Asbestos exposure Hyperthyroidism Peripheral vascular disease Seizures (HCC) Social History Tobacco Use Types Packs/Day Years Used Date Smoking Tobacco: Never Tobacco Cessation:Counseling Given: Not Answered Alcohol Use Standard Drinks/Week Comments Not Currently 0 (1 standard drink = 0.6 oz pur e alcohol) Personal Safety Answer Date Recorded Have you ever been in or are you currently in a harmful physical or emotional relationship or is someone making you feel afraid or unsafe? Denies 11/15/2023 Sex and Gender Information Value Date Recorded Sex Assigned at Not on file Legal Sex Male 9:21 PM PUBLIC RELATIONS CONSULTANT Gender Identity Male 02/04/2022 4:33 AM CDT Sexual Orientation Straight 02/04/2022 4: 33 AM CDT Obstetrics History Last Filed Vital Signs Vital Sign Reading Time Taken Comments Blood Pressure 121/80 06/02/2024 1:06 PM PUBLIC RELATIONS CONSULTANT Pulse 90 11/15/2023 3:00 PM CDT Temperature 36.6 C (97.8 F) 11/15/2023 11:34 AM CDT Respiratory Rate 18 11/15/2023 11:34 AM CDT Oxygen Saturation 98% 11/15/2023 3:00 PM CDT Inhaled Oxygen Concentration - - Weight 69.7 kg (153 lb 9.6 oz) 06/02/2024 1:06 P M PUBLIC RELATIONS CONSULTANT Height 177.8 cm (5' 10) 06/02/2024 1:06 PM PUBLIC RELATIONS CONSULTANT Body Mass Index 22.04 06/02/2024 1:06 PM PUBLIC RELATIONS CONSULTANT Plan of Treatment Health Maintenance Due Date Last Done Comments Albumin Creatinine Ratio, Urine 1973 Colon Cancer Screening-Colonoscopy 1973 Depression Screening 1973 Hemoglobin A1C 1973 Hepatitis C Screening 1973 Prostate Cancer Screening-PSA 1973 Dilated Eye Exam 1973 Foot Exam 1973 Hepatitis B Screening 12/07/1991 Regular Well Visit/Exam 18-64 12/07/1991 Pneumococcal vaccine <65 (1 of 2 - PCV) 1992 eGFR 02/16/2023 02/16/2022, 12/07/2020 Zoster Vaccine (1 of 2) 12/07/2023 Lipid Panel 03/09/2024 03/09/2023, 12/27, 10/14/2021 Covid-19 Vaccine (4 - 2024-2 6 season) 2024 02/10/2021, 08/11/2020, 07/21/2020 Influenza Vaccine (#1) 2024 , 03/03/2022, 01/19/2021, Additional history exists DTaP/Tdap/Td Vaccine (2 - Td or Tdap) 10/24/2025 10/25/2015 Procedures Procedure Name Priority Date/Time Associated Diagnosis Comments EGFR STAT 02/16/2022 6:55 PM CDT from Last 3 Months or Most Recently Relevant to Health Maintenance Results * eGFR (02/16/2022 6:55 PM CDT) eGFR 93 mL/min/1. 73 m2 AM[facility] Comment: Interpretive Data Reference Interval Normal >/= 90 mL/min/1.73m2 Mildly decreased* 60 - 89 mL/min/1.73m2 Mildly to moderately decreased 45 - 59 mL/min/1.73m2 Moderately to severely decreased 30 - 44 mL/min/1.73m2 Severely decreased 15 - 29 mL/min/1.73m2 Kidney Failure < 15 mL/min/1.73m2 *Relative to young adult level Estimated glomerular filtration rate is determined by the 2020 CKD-EPI equation recommended by the National Kidney Foundation (A Unifying Approach to GFR Estimation: Recommendations of the NKF-ASK Task Force on Reassessing the Inclusion of Race in Diagnosing Kidney Disease, JASN 2020). The CKD-EPI equation should not be used for patients with unstable renal function and has not been validated in children and those over 70. Current interpretive data was last reviewed 2021. Testing performed by: [facility], [address] [place] [address]., [id number] Blood 02/16/2022 6:55 PM CDT 02/16/2022 7:00 PM CDT Abby Verdugo NP LAB BLOOD ORDERABLES Final R esult [facility] [address] [facility] [place] [address] from Last 3 Months or Most Recently Relevant to Health Maintenance Insurance [employer] [facility] MEDICARE [facility] Address: [address] [address] [place] [address] [facility] MEDIC[facility] Address: [address] [address] [place] [address] [employer] Care Teams Roof Slater Relationship Specialty Start Date End Date Linda Mae MD [address] [address] PCP - General Family Medicine 11/15/23
== END 2025-02-25 12:45 | disposition home or self-care (01) ==
DX: R91.1 Solitary pulmonary nodule (principal)
CPT/HCPCS: 71250